=== PATIENT | female | born 1965 | race Caucasian/White ===

== ENCOUNTER → 2018-12-25 21:42 | Outpatient (CLI) | payer OTHER, SELFPAY ==
[2018-12-25 17:11] VITALS: BMI 31.9
[2018-12-25 21:53] LABS: Absolute Lymphocyte Count 4.31 X10^3/ul (0.83-4.51); Absolute Neutrophil Count 4.2 X10^3/uL (2.0-7.7); Basophil# 0.03 X10^3/uL; Basophil% 0.3 % (0-1); Eosinophil# 0.29 X10^3/uL; Eosinophils% 3.1 % (0-5); Hemoglobin 15.4 g/dl (12.0-15.0); Lymphocyte # 4.31 X10^3/ul (4.0); Lymphocyte % 45.8 % (19-41); Mean Corp Hgb Conc 33.5 g/gl (32-36); Mean Corpuscular Hgb 32.9 pg (27.0-32.0); Mean Corpuscular Volume 98.3 fL (81-99); Mean Platelet Vol. 10.1 fl (6.2-12.0); Monocyte# 0.54 X10^3/uL; Monocyte% 5.7 % (0-10); Neutrophil # 4.23 X10^3/uL (2.7-7.7); Platelet Count 247 K/mm3 (150-450); RBC Distribution Width CV 13.4 % (11.6-14.6); RBC Distribution Width SD 47.9 fl (35.1-43.9); Red Blood Count 4.68 M/mm3 (4.2-5.4); White Blood Count 9.4 K/mm3 (4.4-11.0)
[2018-12-25 21:57] LABS: POSITIVE COUNT NO; POSITIVE DIFFERENTIAL NO; POSITIVE MORPHOLOGY NO
[2018-12-25 22:07] LABS: AST(SGOT) 20 U/L (15-37); Alanine Aminotransfer ALT/SGPT 37 U/L (13-56); Albumin, Serum 3.9 g/dL (3.2-5.0); Alkaline Phosphatase 107 U/L (45-117); Anion Gap 7 (5-15); BUN 11 mg/dL (7-18); BUN/Creat Ratio 15.1 RATIO (10-20); Calcium,Total 9.3 mg/dL (8.5-10.1); Chloride 103 mmol/L (98-107); Cholesterol 210 mg/dL (200); Creatinine, Serum 0.73 mg/dL (0.55-1.02); EST Glomerular Filtration Rate 89 mL/min (>60); Est Glom Filt Rate - Afr Amer 108 mL/min (>60); Globulin 3.9 g/dL (2.2-4.2); Glucose 188 mg/dL (74-106); High Density Lipoprotein 35 mg/dL; Potassium 4.1 mmol/L (3.5-5.1); Protein, Total 7.8 g/dL (6.4-8.2); Sodium Level 139 mmol/L (136-145); Triglycerides 295 mg/dL; Very Low Density Lipoprotein 59 mg/dL (5-40)
== END ==
PROVIDERS: Referring Provider Nurse Practitioner; Visit Provider Nurse Practitioner
DX: I10 Essential (primary) hypertension (principal); E78.5 Hyperlipidemia, unspecified
CPT/HCPCS: 80053; 80061; 85025

== ENCOUNTER 2019-01-04 08:00 | Day surgery (SDC) | payer OTHER, SELFPAY ==
[2018-12-25 17:11] VITALS: BMI 31.9
--- NOTE | 2019-01-04 | COLBX_PTH ---
PATIENT: CAROL JOSHI LOC: EN U#:[id number] AGE/SX: 53/F ROOM: RE01/04/[address]: Dr. Keisha Headley MD : 1965 BED: DIS: 01/04/2019 SPEC #: [id number] RECD: 01/04/19 13:38 STATUS: DOMINICK JANNY #: [id number] JAKOB: 01/04/19 00:[address]: Keisha Headley DEPT: SURGICAL PATHOLOGY RECD BY: Robbie Haq ENTERED: 01/04/19 13:39 SP TYPE: COLON BX OTHR DR: Jazmyne Booker, [facility] Tissues: A - Sigmoid colon biopsy B - Rectum, NOS C - Rectum, NOS D - Rectum, NOS E - Rectum, NOS F - Rectum, NOS Procedures: Surgery Specimen Level IV HEADER OPERATION: Colonoscopy (MAC) PRE-OP DIAGNOSIS: Screening TISSUE SUBMITTED: A - Sigmoid polyp, B - Rectal polyps, C - Biopsy of rectal polyps #2, D - Distal rectal polyps #1, E - Distal rectal polyps #2, F - Biopsy of distal rectal polyps #3 MICROSCOPIC DIAGNOSIS A. Sigmoid polyp, biopsy: Hyperplastic polyp. B. Rectal polyps, biopsy: Fragments of hyperplastic polyp. C. Rectal polyps, biopsy: Fragments of hyperplastic polyp. D. Distal rectal polyp #1, biopsy: Fragments of hyperplastic polyp. E. Distal rectal polyp #2, biopsy: Fragments of hyperplastic polyp. F. Distal rectal polyp #3, biopsy: Fragments of hyperplastic polyp. AM:guero 01/05/19 MICROSCOPIC DESCRIPTION Slides are reviewed. GROSS DESCRIPTION A - Received in fixative is one container labeled with the patient's name and designated sigmoid polyp. The specimen consists of a carbone-pink polyp measuring 0.7 x 0.7 x 0.3 cm. The entire specimen is submitted in one cassette. Please note only one large polyp is identified. B - Received in fixative is one container labeled with the patient's name and designated rectal polyps. The specimen consists of multiple irregular fragments of carobne-pink polyp that in aggregate measure 1.5 x 0.7 x 0.3 cm. The specimen is totally submitted in one cassette. C - Received in fixative is one container labeled with the patient's name and designated biopsy of rectal polyps. The specimen consists of multiple irregular fragments of light carbone soft tissue that in aggregate measure 1 x 0.5 x 0.1 cm. The specimen is totally submitted in one cassette. D - Received in fixative is one container labeled with the patient's name and designated distal rectal polyp. The specimen consists of three variable sized pieces of carbone-pink polyp measuring 1.5 x 1 x 0.3 cm. The specimen is totally submitted in one cassette. E - Received in fixative is one container labeled with the patient's name and designated distal rectal polyp - 2. The specimen consists of a carbone-pink polyp measuring 1 x 1 x 0.5 cm. The apparent base is inked. Also present in the container is an additional small polyp measuring 0.3 x 0.3 x 0.2 cm. Also present in the container are multiple minute fragments of carbone soft issue that in aggregate measure 0.2 x 0.1 x 0.1 cm. The largest polyp is transected. The entire specimen is submitted in one cassette. F - Received in fixative is one container labeled with the patient's name and designated biopsy of distal rectal polyps #3. The specimen consists of multiple irregular fragments of light carbone soft tissue that in aggregate measure 2 x 0.5 x 0.1 cm. The specimen is totally submitted in one cassette. / SJ:guero 01/04/19 TC:5 [facility]: [id number] x6 ADDENDUM ADDENDUM 01/05/2019 14:35 ADDENDUM 01/05/2019 14:35 ADDENDUM 01/05/2019 14:35 ADDENDUM 01/05/2019 14:35 ADDENDUM 01/05/2019 14:35 This case was reviewed and diagnosis discussed with Dr. Headley on 01/05/19.
[2019-01-04 08:16] VITALS: BP 127/75; PULSE 71; RESP 16; TEMP 36.4; O2SAT 100; BMI 31.1
[2019-01-04 09:46] LABS: Bedside Glucose 194 mg/dL (70-110)
--- NOTE | 2019-01-04 10:19 | H&P.OPEN ---
History of Present Illness Date of Admission: 01/04/19 The patient is a 53 year old F presents for screening for colon cancer. Patient denies having a previous colonoscopy. Denies any family history of colon cancer. Denies any abdominal pain/nausea/vomiting. Patient states her reflux controlled with omeprazole 20 mg p.o. daily and she has been on for 5 or 6 years. Patient states she never had an EGD. Past Medical/Surgical History - Planned Operation Planned Operative Procedure/s: COLONOSCOPY Date of Operative Procedure: 01/04/19 Permit Signed: Yes S.O.S: No Is This Patient Having a Total Joint: No - Previous Hospitalizations/Surgeries HX Hospitalizations: No HX of Surgeries: NOSE JOB AGE 16. TUBAL. L TRIGGER THUMB. ABLATION. UPPER TEETH EXTRACTION Any Problems With Anesthesia: No You/Your Family Experience Fever (Hyperthermia) With Anes: No Cholinesterase deficiency: No - Cardiovascular Hx Chest Pain within Last 2 months: No Hx of Irregular Heartbeat and/or Afib: No Hx Heart Attack: No Hx Congestive Heart Failure: No Hx Rheumatic Fever: No Hx Hypertension: Yes - ON MED, CONTROLLED Hx Internal Defibrillator: No Hx Pacemaker: No Hx Cardiac Catheterization: No Hx Cardiac Surgery/Stents/Etc.: No Hx Stress Test: No HX Edema: No Hx Pain in Legs when Walking/Leg Cramps: No - Respiratory Chronic Cough: No HX of Shortness of Breath: No Hoarseness: No Hx Chronic Obstructive Pulmonary Disease (COPD): No Hx Asthma: No Hx Emphysema: No Hx Sleep Apnea: No Hx Oxygen Use at Home: No Hx Respiratory Tract Infection/Cold (presently): Yes - STUFFY NOSE, NO FEVER Do You Snore Loudly (louder than talking or can be heard): No Do You Often Feel Tired/ Fatigued/ Sleepy Dring Daytime?: No Has Anyone Observed You Stop Breathing During Sleep?: No Result (for STOP score): Negative Hx Smoking: Yes Smoking Status: Current every day smoker - Gastrointestinal Hx Gastroesophageal Reflux: Yes Controlled With Meds: Yes Hx Gastrointestinal Disorders: No Hx Gastrointestinal Bleed: No Hx Ulcer: No Hx Hiatal Hernia: No Difficulty Chewing/Swallowing: No Recent Onset of Swallowing Problems: No Special diet followed at home: No Hx Unplanned Weight Loss of 20#: No HX Unplanned Weight Gain of 20#: No - Neurological Hx Seizures: No HX Syncope/Blackout Spells/Unconsciousness: No Hx CVA/Stroke: No Hx Transient Ischemic Attacks (TIA): No Hx Multiple Sclerosis: No Hx Parkinson's Disease: No Hx Head/Neck Injury: No Hx Headaches: Yes - MIGRAINES RARELY Hx Back Injury/Pain: No Recent Onset of Speech Difficulty: No Restless Legs: No Does patient have nerve stimulator: No - Blood Disorder Hx Leukemia: No Bleeding Tendencies: No Hx Deep Vein Thrombosis: No Hx High Cholesterol: Yes - ON MED Blood Transmitted Disease: No Hx Hepatitis: No Hx Cirrhosis: No Hx Anemia: No Hx Blood Disorders: No - Reproduction : No Is Patient Lactating: No Hx Hysterectomy: No Hx Tubal Ligation: Yes Are You Post Menopause: No - Genitourinary Hx Renal Disease: No - Musculoskeletal Hx Arthritis: No Hx Rheumatoid Arthritis: No Hx Gout: No Recent Onset of an Orthopedic Problem: No - Endocrine Hx Diabetes: Yes Insulin: No Thyroid Disease: No Hx Steroid Therapy: No - Psycho/Social Hx Substance Use: No Hx Alcohol Use: Yes - SOCIALLY Hx Anxiety: No Hx Depression: No Mental Illness: No Hx Dementia: No - Miscellaneous Hx Cancer: No Recent Exposure to Contagious Disease: No Active MRSA: No Hx of C-Diff: No Any Loose Teeth: Yes - UPPER DENTURE-LOWER PARTIAL Additional information pertinent to anesthesia:: SMOKES 1PPD FOR 35 YRS Allergies linagliptin [From Tradjenta] Allergy (Severe, Verified 12/30/18 11:42) BLURRED VISION - Discharge Is Pt Admitted From a Assisted, or a Intermediate: No Who Could Help: -NANCI After D/C, Where Do you Plan to Go: Return Home - Physical Exam General: Alert HEENT: Atraumatic Lungs: Normal air movement Cardiovascular: Regular rate Abdomen: Soft, Non Tender - No peritoneal signs, Non-Distended Extremities: No clubbing, No cyanosis, No edema Vital Signs Temp Pulse Resp BP Pulse Ox 97.6 F L 71 16 127/75 H 100 01/04/19 08:16 01/04/19 08:16 01/04/19 08:16 01/04/19 08:16 01/04/19 08:16 Oxygen Delivery Method Room Air Weight: 187 lb 2.759 oz Body Mass Index (BMI) 31.1 POC Glucose 01/04/19 08:24 POC Glucose 194 H Assessment/Plan All Active Problems (Last Updated 12/25/18 @ 14:55 by Sharon Lyman) Encounter for screening mammogram for breast cancer (Acute) Hyperlipidemia LDL goal <130 (Acute) Diabetes mellitus type 2, uncontrolled, without complications (Acute) 53-year-old female for screening for colon cancer Surgery Risks - Colonoscopy I discussed with the patient the risks of the procedure: Yes Risks Include but are not Limited To: Risks include but are not limited to: Bleeding, perforation requiring further surgery, inability to complete colonoscopy requiring barium enema. Patient no further questions at this time
[2019-01-04 11:14] VITALS: BP 120/85; BP 127/75; PULSE 77; RESP 16; TEMP 36.6; O2SAT 97
--- NOTE | 2019-01-04 11:18 | OP.ENDO_ITS ---
Patient Name: Shasha Warren Procedure Date: 01/04/2019 10:10 AM Date of : 1965 Age: 53 Procedure: Colonoscopy Indications: Screening for colorectal malignant neoplasm Providers: Keihsa Headley MD Medicines: Monitored Anesthesia Care Patient Profile: This is a 53 year old female. Last Colonoscopy: none. The patient's first colonoscopy is today. Complications: No immediate complications. Procedure: Pre-Anesthesia Assessment: - Prior to the procedure, a History and Physical was performed, and patient medications and allergies were reviewed. The patient's tolerance of previous anesthesia was also reviewed. The risks and benefits of the procedure and the sedation options and risks were discussed with the patient. All questions were answered, and informed consent was obtained. Prior Anticoagulants: The patient has taken no previous anticoagulant or antiplatelet agents. ASA Grade Assessment: II - A patient with mild systemic disease. After reviewing the risks and benefits, the patient was deemed in satisfactory condition to undergo the procedure. After I obtained informed consent, the scope was passed under direct vision. Throughout the procedure, the patient's blood pressure, pulse, and oxygen saturations were monitored continuously. The pediatric colonoscope was introduced through the anus and advanced to the cecum, identified by the appendiceal orifice, ileocecal valve and palpation. The colonoscopy was performed without difficulty. The patient tolerated the procedure well. The quality of the bowel preparation was good. Scope In: 10:24:02 AM Scope Withdrawal Time 0 hours 34 minutes 50 seconds Scope Out: 11:09:00 AM Total Procedure Duration Time 0 hours 44 minutes 58 seconds Findings: Eight pedunculated polyps were found in the rectum and sigmoid colon. The polyps were 5 to 10 mm in size. These polyps were removed with a hot snare. Resection and retrieval were complete. Eight sessile polyps were found in the rectum. The polyps were less than 5 mm in size. These polyps were removed with a cold biopsy forceps. Resection and retrieval were complete. The retroflexed view of the distal rectum and anal verge was normal and showed no anal or rectal abnormalities. Multiple small and large-mouthed diverticula were found in the sigmoid colon and descending colon. Impression: - Eight 5 to 10 mm polyps (adenomatous) in the rectum and in the sigmoid colon, removed with a hot snare. Resected and retrieved. - Eight less than 5 mm polyps in the rectum, removed with a cold biopsy forceps. Resected and retrieved. - The distal rectum and anal verge are normal on retroflexion view. - Diverticulosis in the sigmoid colon and in the descending colon. Recommendation: - Discharge patient to home. - High fiber diet. - Continue present medications. - Await pathology results. - Repeat colonoscopy in 1 year for surveillance based on pathology results. Procedure Code(s): --- Professional --- 18888, Colonoscopy, flexible; with removal of tumor(s), polyp(s), or other lesion(s) by snare technique [id number], 59, Colonoscopy, flexible; with biopsy, single or multiple Diagnosis Code(s): --- Professional --- Z12.11, Encounter for screening for malignant neoplasm of colon D12.8, Benign neoplasm of rectum D12.5, Benign neoplasm of sigmoid colon K62.1, Rectal polyp K57.30, Diverticulosis of large intestine without perforation or abscess without bleeding CPT copyright 2017 [employer]. All rights reserved. The codes documented in this report are preliminary and upon unmanned equipment operator review may be revised to meet current compliance requirements. MD Keisha Abbasi MD 01/04/2019 11:18:15 AM This report has been signed electronically. Number of Addenda: 0 Note Initiated On: 01/04/2019 10:10 AM
[2019-01-04 11:19] VITALS: BP 127/75; BP 136/83; PULSE 66; RESP 16; O2SAT 98
[2019-01-04 11:24] VITALS: BP 127/75; BP 129/79; PULSE 69; RESP 16; O2SAT 100
[2019-01-04 11:30] VITALS: BP 127/75; BP 149/89; PULSE 73; RESP 16; TEMP 36.4; O2SAT 100
[2019-01-04 11:39] VITALS: BP 127/75
== END 2019-01-04 12:03 | disposition home or self-care (01) ==
LOC: EN 08:00 → AC 08:02
PROVIDERS: Family Provider Nurse Practitioner; PCP Nurse Practitioner; Referring Provider Surgery; Visit Provider Surgery
PROC: 0DJD8ZZ Inspection of Lower Intestinal Tract, Via Natural or Artificial Opening Endoscopic (ICD-10-PCS; CPT 45378; principal; 2019-01-04 09:10)
DX: Z12.11 Encounter for screening for malignant neoplasm of colon (principal); D12.5 Benign neoplasm of sigmoid colon; D12.8 Benign neoplasm of rectum; K57.30 Diverticulosis of large intestine without perforation or abscess without bleeding; K21.9 Gastro-esophageal reflux disease without esophagitis; I10 Essential (primary) hypertension; E11.9 Type 2 diabetes mellitus without complications; E78.5 Hyperlipidemia, unspecified; F17.200 Nicotine dependence, unspecified, uncomplicated; Z79.84 Long term (current) use of oral hypoglycemic drugs; Z79.899 Other long term (current) drug therapy
CPT/HCPCS: 45380; 45385; 82962; 88305; J7120

== ENCOUNTER → 2022-12-20 | Outpatient (CLI) | payer BC, SELFPAY ==
[2022-12-20 21:31] LABS: Absolute Lymphocyte Count 2.82 X10^3/uL (0.83-4.51); Absolute Neutrophil Count 2.4 X10^3/uL (2.0-7.7); Basophil# 0.08 X10^3/uL; Basophil% 1.3 % (0-1); Eosinophil# 0.43 X10^3/uL; Eosinophils% 6.8 % (0-5); Hematocrit 41.1 % (37-47); Hemoglobin 13.7 g/dL (12.0-15.0); Lymphocyte # 2.82 X10^3/ul (0.83-4.51); Lymphocyte % 44.4 % (19-41); Mean Corp Hgb Conc 33.3 g/dL (32-36); Mean Corpuscular Hgb 31.4 pg (27.0-32.0); Mean Corpuscular Volume 94.1 fL (81-99); Mean Platelet Vol. 10.1 fl (6.2-12.0); Monocyte# 0.56 X10^3/uL; Monocyte% 8.8 % (0-10); NRBC Flagged by Analyzer 0 % (0-5); Neutrophil # 2.44 X10^3/uL (2.7-7.7); Neutrophil % 38.4 % (47-70); Platelet Count 266 K/mm3 (150-450); RBC Distribution Width CV 13.2 % (11.6-14.6); RBC Distribution Width SD 45.2 fl (35.1-43.9); Red Blood Count 4.37 M/mm3 (4.2-5.4); White Blood Count 6.4 K/mm3 (4.4-11.0)
[2022-12-20 21:54] LABS: ALB/GLOB Ratio 0.9 RATIO (0.9-2.4); AST(SGOT) 14 U/L (15-37); Alanine Aminotransfer ALT/SGPT 28 U/L (13-56); Albumin, Serum 3.6 g/dL (3.2-5.0); Alkaline Phosphatase 112 U/L (45-117); Anion Gap 4 (5-15); BUN 21 mg/dL (7-18); BUN/Creat Ratio 25.4 RATIO (10-20); Calcium,Total 9.2 mg/dL (8.5-10.1); Chloride 105 mmol/L (98-107); Cholesterol 170 mg/dL (200); Creatinine, Serum 0.83 mg/dL (0.55-1.02); EST Glomerular Filtration Rate 76 mL/min (>60); Est Glom Filt Rate - Afr Amer 91 mL/min (>60); Globulin 3.9 g/dL (2.2-4.2); Glucose 213 mg/dL (74-106); High Density Lipoprotein 58 mg/dL; Potassium 4.2 mmol/L (3.5-5.1); Protein, Total 7.5 g/dL (6.4-8.2); Sodium Level 138 mmol/L (136-145); Triglycerides 112 mg/dL; Very Low Density Lipoprotein 22 mg/dL (5-40)
== END | disposition home or self-care (01) ==
PROVIDERS: PCP Nurse Practitioner; Visit Provider Nurse Practitioner
DX: Z00.00 Encounter for general adult medical examination without abnormal findings (principal)
CPT/HCPCS: 80053; 80061; 85025

== ENCOUNTER → 2023-12-12 | Outpatient (CLI) | payer BC, SELFPAY ==
--- OUTSIDE RECORDS SUMMARY | 2023-12-12 19:41 | XMS RPT_ITS | CCD ---
Author Name Unknown Address [address] [place] [address] Organization [facility] Care Team Providers Care Bottoming Machine Operator Name Role Phone CISCO BOOKER Referring Unavailable CISCO BOOKER Primary Care Unavailable BETTY BOBBY Referring Unavailable BETTY BOBBY Attending Unavailable DONTA ARORA Attending Unavailable CISCO BOOKER Primary Care Unavailable CISCO BOOKER Primary Care Unavailable Cisco Booker Primary Care Provider [phone] Allergies Allergy Classification Reported Allergen(s) Allergy Type Date of Onset Reaction(s) Facility (7 sources) cefdinir Drug Allergy 06-29-2015 [facility] (7 sources) Linagliptin Drug Allergy 12-30-2018 [facility] Medications Current Medications Medication Drug Class(es) Dates Sig (Normalized) Sig (Original) docosahexaenoic acid 120 mg / eicosapentaenoic acid 180 mg oral capsule (6 sources) omega-3 (Fish Oi l) 1000 MG capsule Take by mouth. 0 Active ezetimibe 10 mg oral tablet (6 sources) Dietary Cholesterol Absorption Inhibitor take 1 tablet by mouth in the morning ezetimibe (Zetia) 10 MG tablet Take 10 mg by mouth in the morning. 0 Active glimepiride 4 mg oral tablet (6 sources) Sulfonylurea glimepiride (Amaryl) 4 MG tablet Take 4 mg by mouth. 0 Active lisinopril 10 mg oral tablet (6 sources) Angiotensin Converting Enzyme Inhibitor take 1 tablet by mouth in the morning lisinopril 10 MG tablet Take 10 mg by mouth in the morning. 0 Active 24 hr lovastatin 40 mg extended release oral tablet (6 sources) HMG-CoA Reductase Inhibitor take 1 tablet by mouth once daily lovastatin (Altoprev) 40 MG 24 hr tablet Take 40 mg by mouth Nightly. 0 Active modified 24 hr metFORMIN hydrochloride 1000 mg extended release oral tablet (6 sources) Biguanide take 1 tablet by mouth once daily at breakfast, then take 1 tablet by mouth every twenty-four hours metFORMIN, MOD, (Glumetza) 1000 MG 24 hr tablet Take 1,000 mg by mouth daily (with breakfast). 0 Active niacin 500 mg oral tablet (6 sources) Nicotinic Acid niacin 500 MG tablet Take 500 mg by mouth. 0 Active omeprazole 20 mg delayed release oral capsule (6 sources) Proton Pump Inhibitor take 1 capsule by mouth in the morning omeprazole (PriLOSEC) [address] capsule Take 20 mg by mouth in the morning. 0 Active Completed/Discontinued Medications Medication Drug Class(es) Dates Sig (Normalized) Sig (Original) 10 ml lidocaine hydrochloride 10 mg/ml injection (2 sources) Antiarrhythmic, Amide Local Anesthetic Start: 07-09-2023 End: 07-09-2023 lidocaine (Xylocaine) 1 % injection 4 mL 1 ml triamcinolone acetonide 40 mg/ml injection (2 sources) Corticosteroid Start: 07-09-2023 End: 07-09-2023 triamcinolone acetonide (Kenalog-40) injection 80 mg Problems Problem Classification Problem Date Documented Da te Episodic/Chronic Sprains and strains (14 sources) Strain of muscle of upper limb; Translations: [Strain of muscle, fascia and tendon of other parts of biceps, right arm, initial encounter] Onset: 05-14-2023 05-14-2023 Episodic Results Test Name Value Interpretation Reference Range Facil ity Vital Signs Date Time Vital Sign Value Performing Clinician Faci lity 07-09-2023 10:20-0400 Body height 165.1 cm Donta Arora MD Work Phone: [employer] 07-09-2023 10:20-0400 Body mass index (BMI) [Ratio] 33.28 kg/m2 Donta Arora MD Work Phone: [employer] 07-09-2023 10:20-0400 Body weight 90.72 kg Donta Arora MD Work Phone: [employer] 07-09-2023 10:20-0400 Diastolic blood pressure 83 mm[Hg] Donta Arora MD Work Phone: [employer] 07-09-2023 10:20-0400 Systolic blood pressure 141 mm[Hg] Donta Arora MD Work Phone: [facility] [employer] 05-23-2023 09:35-0400 Body height 165.1 cm Donta Arora MD Work Phone: [facility] [employer] 05-23-2023 09:35-0400 Body mass index (BMI) [Ratio] 33.28 kg/m2 Donta Arora MD Work Phone: [facility] [employer] 05-23-2023 09:35-0400 Body weight 90.72 kg Donta Arora MD Work Phone: [facility] [employer] 05-23-2023 09:35-0400 Diastolic blood pressure 82 mm[Hg] Donta Arora MD Work Phone: [facility] [employer] 05-23-2023 09:35-0400 Systolic blood pressure 110 mm[Hg] Donta Arora MD Work Phone: [facility] Encounters Encounter Date Encounter Type Care Provider Facility Start: 07-09-2023 End: 07-09-2023 ambulatory [facility] Start: 07-09-2023 End: 07-09-2023 Office outpatient visit 15 minutes Donta Arora MD Work Phone: [facility] Procedures Date Procedure Procedure Detail Performing Clinician Start: 01-04-2019 Colonoscopy Betty garcia [employer] SUPERVISOR - [employer] Work Phone: Plan of Treatment Date Care Activity Detail Author Start: 01-04-2029 Screening for malign ant neoplasm of colon [facility] Start: 07-25-2023 Influenza vaccination S [facility] Start: 2015 Zoster Vaccines (1 of 2) Zoster Vacc kellie (1 of 2) [facility] Start: 2005 Screening for malign ant neoplasm of breast Mammogram [facility] Start: 1995 Screening for malign ant neoplasm of cervix [facility] Start: 1986 Screening for malign ant neoplasm of cervix Pap Smear [facility] Start: 1984 DTaP/Tdap/Td Vaccine s (1 - Tdap) DTaP/Tdap/Td Vaccines ( - Tdap) [facility] Start: 1983 Hepatitis C screening Hepatitis C Ma sushil [facility] Start: 1977 Depression Screening Depression Scre katie [facility] Start: 1975 Diabetic foot examination Diabetes: Foot Exam [facility] Start: 1975 Glaucoma screening Diabetes: R etinopathy Screening [facility] Start: 1975 Preventive dental service Diabetes: Dental Exam [facility] Start: 1966 MMR Vaccines (1 of 1 - Standard series) MMR Vaccines (1 of 1 - Standard series) [facility] Start: 1965 Hemoglobin A1c measurement Diabetes: Hemoglobin A1C [facility] Start: 1965 Hepatitis B Vaccines (1 of 3 - 3-dose series) Hepatitis B Vaccines (1 of 3 - 3-dose series) [facility] Start: 1965 HIV screening HIV Screening [facility] Start: 1965 Lipid panel Lipid Panel [facility] Start: 1965 Screening for malign ant neoplasm of colon [facility] End: 05-14-2023 MR Shoulder - right WO contrast [facility] Work Phone: Immunizations Immunization Date Immunization Notes Care Provider [facility] 09-01-2014 influenza virus vacc ine, unspecified formulation Betty Bobby [employer] SUPERVISOR - [employer] Work Phone: [facility] Payers Date Payer Category Payer Unknown [id number] 2023 Worker's Compensation [employer] [id number] 2023-Present [address] [place] [address] Worker's Comp [id number] Social History Date Type Detail Facility [facility] consumption unknown [facility] Start: 1965 Sex Assigned At Not on file [facility] Start: 05-23-2023 End: 07-09-2023 Gender identity Not on file [facility] Start: 05-04-2023 End: 05-14-2023 Exposure to SARS-CoV-2 (event) Not sure [facility] Start: 05-23-2023 [facility] History of tobacco use Current smoker [facility] History of tobacco use Cigarette Smoker S [facility] Start: 05-23-2023 Tobacco use and exposure Smokeless t obacco non-user [facility] Start: 05-23-2023 End: 07-09-2023 History of Social function [facility] Clinical Notes 05-23-2023 to 07-09-2023 Donta Arora MD - 07/09/2023 10:00 AM EDTTelephone Encounter - Lupis Ledesma - 05/30/2023 4:15 PM EDTTelephone Encounter - Lupis Ledesma - 05/30/2023 4:15 PM EDTPatient Instructions Note Date & Type Note Facility 07-09-2023 History of Presen t illness Narrative Images from the original note were not included. [facility] [address] [facility] [address] Dept: [phone] Dept Chief Complaint Patient presents with Follow-up [facility] Right Shoulder Diagnostic Injection Subjective History of Present Illness: Carol Joshi follows up today for Right Shoulder Injection. [facility]# [id number], DOI: 03/13/2023 Since the last visit on 05/23/2023, symptoms are unchanged. Current symptoms are pressure, tight/stiff, sharp, shooting, and cramping . She rates symptoms as a 0/10 at rest and a 8/10 at worst. Imaging to date: MRI April 2023 Treatment to date: PT/OT/HEP: yes, formal physical therapy for 1 month. Helpful Ice: no Heat: no Medications: Tylenol: yes, helpful NSAIDs: yes, Ibuprofen/Motrin/Advil, helpful Oral steroids: no Muscle relaxants: no Nerve medications: no Targeted injections: none Assistive devices: none Fall risk assessment: Less than 65, not applicable Objective There were no vitals taken for this visit. Physical Exam: General: Alert, well appearing, no acute distress. Respiratory: Breathing comfortably on room air. No respiratory distress. Skin: Warm, dry, intact. No visible rashes or erythema overlying area of focused exam. Physical Exam Musculoskeletal: Comments: Musculoskeletal/Neurologic: Right Shoulder. Contralateral side is normal unless otherwise noted. Inspection: Posture: Normal. Ecchymosis: No ecchymosis noted of the examined area. Palpation: Diffuse tenderness superior lateral shoulder Range of Motion: Cervical Spine: Full, pain free. Right Shoulder: Flexion: 170. Abduction: 170. ER at AB: 30. IR at AB: 50. Strength: Supraspinatous - Empty Can/Jobst: Pain with no weakness. Infraspinatus - Resisted lateral rotation: Normal. Subscapularis - Resisted interal rotation: Pain with no weakness. Biceps - Speed's Test: Normal strength with mild discomfort. Sensation: Sensation to light touch intact, symmetric of the examined bilateral upper extremities. Special Tests: Neer's: Normal. Us-Jareth: Normal. Cross Body Adduction: Normal. [place]'s Test: Normal. Spurling's: Normal. External Notes None available, unable to view [facility] notes Labs No results found for: HGBA1C No results found for: CREATININE Imaging Images reviewed with patient today I have personally reviewed the images pertinent to the appointment today EMG/NCT N/A Procedure Procedure completed today, details below Based on today's examination and a subacromial injection will give her the most relief. Her bicipital tendon tenderness was insignificant. Her limited external rotation and mild rotator cuff symptomatology was the primary focus. Procedure Note: Prior to the procedure, the patient's allergies were reviewed. The procedure site was marked. The risks, benefits, alternatives, and anticipated outcomes of the procedure were discussed. Informed consent included possibility of bleeding, infection, increased pain, hyperglycemia, steroid flare, hypopigmentation and fat atrophy. Injection site - Right subacromial bursa. Injectate - 2 ml Kenalog (40mg/ml) with 4 ml of 1% lidocaine. The injection site was prepped in the usual sterile manner using betadine and rubbing alcohol. Ethyl chloride mist spray was used to numb the skin. Needle advanced to target without difficulty. After the injection, a bandage was placed over the injection site. The patient tolerated the procedure well with no adverse effects. Post-injection instructions were reviewed with the patient and the patient voiced understanding. Post procedure the shoulder pain was reduced. Assessment No diagnosis found. Plan [facility] Plan Current work status: No change based on my treatment plan today . C9 request: Agree with physical therapy recommendations of extending their visits. No follow-ups on file. Maisha Schwartz MA 07/09/2023 8:30 AM Please note that portions of this note may have been completed with voice recognition software. Documentation reviewed prior to signing but minor errors in canvassing manager may have occurred. documented in this encounter [facility] 05-30-2023 Telephone encount er Note Called pt to let her know ok to sched PT. She will call to schedule [facility] 05-30-2023 Miscellaneous Notes Formattin g of this note might be different from the original. Called pt to let her know ok to sched PT. She will call to schedule Let her know ok to schedule , ty Received approved C9 for phys therapy. Ok to schedule. Copy of approved C9 is scanned to pt media chart Ok ty Faxed C9 for physical therapy. documented in this encounter [facility] 05-30-2023 Telephone encount er Note Let her know ok to schedule , ty [facility] 05-30-2023 Telephone encount er Note Received approved C9 for phys therapy. Ok to schedule. Copy of approved C9 is scanned to pt media chart [facility] 05-29-2023 Telephone encount er Note Ok ty [facility] 05-29-2023 Miscellaneous Notes Formattin g of this note might be different from the original. Ok ty Faxed C9 for physical therapy. documented in this encounter [facility] 05-29-2023 Telephone encount er Note Faxed C9 for physical therapy. [facility] 05-23-2023 Telephone encount er Note TY! [facility] 05-23-2023 Miscellaneous Notes Formattin g of this note might be different from the original. TY! Faxed C9 for phys therapy to [place] today documented in this encounter [facility] 05-23-2023 Telephone encount er Note Faxed C9 for phys therapy to [place] today [facility] 05-23-2023 History of Presen t illness Narrative Images from the original note were not included. [facility] [address] [place] [address] Dept: [phone] Dept Chief Complaint Patient presents with New Patient Right shoulder pain -[facility] Subjective History of Present Illness: Carol Joshi is a 58 y.o. right hand dominant female who presents today for evaluation of right shoulder pain. Location: generalized and around the bicep Onset: 2 months Injury: yes - lifting at work . Work related? 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 Respiratory: Breathing comfortably on room air. No respiratory distress. Skin: Warm, dry, intact. No visible rashes or erythema overlying area of focused exam. Physical Exam Musculoskeletal: Comments: Musculoskeletal/Neurologic: Right Shoulder. Contralateral side is normal unless otherwise noted. Inspection: Posture: Normal. Ecchymosis: No ecchymosis noted of the examined area. Palpation: Diffuse tenderness superior lateral shoulder Range of Motion: Cervical Spine: Full, pain free. Right Shoulder: Flexion: 170. Abduction: 170. ER at AB: 70. IR at AB: 50. Strength: Supraspinatous - Empty Can/Jobst: Pain with mild weakness. Infraspinatus - Resisted lateral rotation: Normal. Subscapularis - Resisted interal rotation: Pain with mild weakness. Biceps - Speed's Test: Normal. Sensation: Sensation to light touch intact, symmetric of the examined bilateral upper extremities. Special Tests: Neer's: Normal. Us-Jareth: Normal. Cross Body Adduction: Normal. Ak[place]'s Test: Normal. Spurling's: Normal. External Notes MRI reviewed Labs No results found for: HGBA1C No results found for: CREATININE Imaging Images reviewed with patient today I have personally reviewed the images pertinent to the appointment today Findings: Multiplanar multisequence high field strength MRI images were obtained through the right shoulder without intravenous gadolinium. No fracture or subluxation. Acromioclavicular joint demonstrates mild osteoarthropathy with degenerative sclerosis and small distal clavicle osteophyte inferiorly. Tiny developing subchondral cyst distal clavicle. Type III acromion with anterior hook causes [id number] impingement. Mild subacromial subdeltoid bursitis with some bursal sided supraspinatus tendon fraying. Long head biceps tendon is torn and retracted. A few thin fibers are seen along the proximal bicipital groove. Subscapularis demonstrates mild tendinitis. There is tiny partial-thickness interstitial tear superiorly series 7 images 11 through 13. Minimal supraspinatus tendinitis, no tear. Infraspinatus and teres minor are normal. No significant atrophy. Small shoulder joint effusion with mild synovitis. Glenohumeral articular cartilage demonstrates mild articular cartilage thinning but no focal or full thickness defect. Glenoid labrum demonstrates age-indeterminate tear of the superior labrum. 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 Tiny glenohumeral osteophytes with minimal degenerative glenoid sclerosis. Capsule demonstrates mild inflammation along the anterior interval and inferiorly which can be seen with adhesive capsulitis or a mild capsular sprain. IMPRESSION: Impression: 1. Torn and retracted proximal long head biceps tendon. No definite residual intact fibers are seen. 2. Tiny partial interstitial tear of the distal superior subscapularis superimposed on subscapularis and supraspinatus tendinitis. No sizable or full-thickness tear. 3. Mild inflammation within the anterior rotator cuff interval and inferiorly which can be seen with a mild capsular sprain or disease of capsulitis. No tear. 4. Small shoulder joint effusion with mild synovitis. 5. Mild acromioclavicular and glenohumeral osteoarthropathy. There is [id number] acromial impingement with mild subacromial subdeltoid bursitis. EMG/NCT N/A Procedure No procedures completed today Assessment Diagnosis Plan 1. Traumatic partial tear of right biceps tendon, initial encounter Ambulatory referral to Physical Therapy 2. Sprain of right shoulder, initial encounter Ambulatory referral to Physical Therapy Plan Strongly recommend we start a C9 for initiation of formal physical therapy. Strain supraspinatus muscle right shoulder and strain subscapularis muscle right shoulder should be additional added diagnoses as this is confirmed by her examination and MRI. No follow-ups on file. Donta Arora MD 05/23/2023 9:29 AM Please note that portions of this note may have been completed with voice recognition software. Documentation reviewed prior to signing but minor errors in canvassing manager may have occurred. documented in this encounter [facility] 05-23-2023 Instructions Donta Arora MD - 05/23/2023 9:45 AM EDT Images from the original note were not included. Rotator Cuff: Strengthening Exercises, Arm raise x 4 Directions 1) Sideways, 0 forwards 2) 30 forward, thumb down 3) 30 forward, thumb up 4) Straight forward, 90 Slowly raise your injured arm each direction. Raise your arm 60 - 80 at the most (shoulder level is 90 ) definitely not over the shoulder height. Hold the position for 3-5 seconds. Then lower your arm back to your side. If you need to, bring your good arm across your body and place it under the elbow as you lower your injured arm. Use your good arm to keep your injured arm from dropping down too fast. Repeat 8 to 15 times. When you first start out, don't hold any extra weight in your hand. As you get stronger, you may use a 1-pound to 3-pound dumbbell or a small can of food. Internal rotator strengthening exercise Start by tying a piece of elastic exercise material to a doorknob. You can use surgical tubing or Thera-Band. Stand or sit with your shoulder relaxed and your elbow bent 90 . Your upper arm should rest comfortably against your side. Squeeze a rolled towel between your elbow and your body for comfort. This will help keep your arm at your side. Hold one end of the elastic band in the hand of the painful arm. Slowly rotate your forearm toward your body until it touches your belly. Slowly move it back to where you started. Keep your elbow and upper arm firmly tucked against the towel roll or at your side. Repeat 8 to 15 times. External rotator strengthening exercise Start by tying a piece of elastic exercise material to a doorknob. You can use surgical tubing or Thera-Band. (You may also hold one end of the band in each hand.) Stand or sit with your shoulder relaxed and your elbow bent 90 . Your upper arm should rest comfortably against your side. Squeeze a rolled towel between your elbow and your body. This will help keep your arm at your side. Hold one end of the elastic band with the hand of the painful arm. Start with your forearm across your belly. Slowly rotate the forearm out away from your body. Slowly move your arm back to where you started. Repeat 8 to 15 times. Progression Start on the progression listed below where you feel comfortable. When the last three reps are perfect form, then increase one step. When you add a set, don't add to the total reps. Repetitions Sets 4 2 6 2 8 2 10 2 12 2 15 2 10 3 12 3 15 3 documented in this encounter [facility] Diagnosis Traumatic partial tear of right biceps tendon, initial encounter- Primary Sprain of right shoulder, initial encounter documented in this encounter [facility]* Diagnosis Sprain of right shoulder, initial encounter Traumatic partial tear of right biceps tendon, initial encounter documented in this encounter [facility]* Diagnosis Strain of muscle, fascia and tendon of other parts of biceps, right arm, initial encounter- Primary Unspecified sprain of right shoulder joint, initial encounter Strain of muscle, fascia and tendon of other parts of biceps, right arm, initial encounter Unspecified sprain of right shoulder joint, initial encounter [facility] Consultation (Routine) - Pending Review Specialty Diagnoses / Procedures Referred By Miranda hurst Referred To Contact Physical Therapy Diagnoses Traumatic partial tear of right biceps tendon, initial encounter Sprain of right shoulder, initial encounter Procedures [place] OFFICE/OUTPATIENT [facility] 60-74 MINUTES Donta Arora MD [address] [place] [id number] Referral ID Status Reason Start Date Expiration Date Visits Requested Visits Authorized [id number] Pending Review Specialty Services Required 05/23/2023 05/22/2024 99 [phone] [facility] Summary Purpose Family History No Family History Records FoundNo Family History Records Found Advance Directives No Advanced Directives Records FoundNo Advanced Directives Records Found Reason for Referral Specialty Diagnoses / Procedures Referred By Miranda hurst Referred To Contact Radiology Diagnoses Strain of muscle, fascia and tendon of other parts of biceps, right arm, initial encounter Unspecified sprain of right shoulder joint, initial encounter Procedures MR shoulder right wo IV contrast Betty Bobby, [employer] - [facility] [facility] [address] [place] [address] Referral ID Status Reason Start Date Expiration Date Visits Re quested Visits Authorized [id number] Closed 05/14/2023 11/10/2023 1 1 Additional Source Comments INFORMATION SOURCE (unrecogn ized section and content) DATE CREATED AUTHOR AUTHOR'S ORGANIZ ATION 07/10/2023 [employer] [facility] Reason for Visit (unrecogniz ed section and content) Referral ID Status Reason Start Date Expiration Date Visits Re quested Visits Authorized [id number] Closed 05/14/2023 11/10/2023 1 1 Reason Comments New Patient Right shoulder pain -[facility] Reason Comments Follow-up [facility] Right Shoulder D iagnostic Injection Care Teams (unrecognized sec tion and content) Bottoming Machine Operator Relationship Specialty Start Date End Date Cisco Booker [address] [facility] [place] [address] PCP - General Nurse Practitioner 05/14/23 Bottoming Machine Operator Relationship Specialty Start Date End Date Cisco Booker [address] [facility] [place] [address] PCP - General Nurse Practitioner 05/14/23 Bottoming Machine Operator Relationship Specialty Start Date End Date Cisco Booker [address] [place] [address] PCP - General Nurse Practitioner 05/14/23 Bottoming Machine Operator Relationship Specialty Start Date End Date Cisco Booker [address] [place] [address] PCP - General Nurse Practitioner 05/14/23 FOR RECORDS PERTAINING TO PATIENTS WHO ARE OR HAVE BEEN ENROLLED IN A CHEMICAL DEPENDENCY/SUBSTANCEABUSE PROGRAM, SOME INFORMATION MAY BE OMITTED. This clinical summary was aggregated from multiple sources. Caution should be exercised in using it in the provision of clinical care. This summary normalizes information from multiple sources, and as a consequence, information in this document may materially change the coding, format and clinical context of patient data. In addition, data may be omitted in some cases. CLINICAL DECISIONS SHOULD BE BASED ON THE PRIMARY CLINICAL RECORDS. [facility] [employer] provides no warranty or guarantee of the accuracy or completeness of information in this document.
[2023-12-12 19:46] LABS: Absolute Lymphocyte Count 3.13 X10^3/uL (0.83-4.51); Absolute Neutrophil Count 2.1 X10^3/uL (2.0-7.7); Basophil# 0.07 X10^3/uL; Basophil% 1.1 % (0-1); Eosinophil# 0.32 X10^3/uL; Eosinophils% 5.2 % (0-5); Hematocrit 41.1 % (37-47); Hemoglobin 13.3 g/dL (12.0-15.0); Lymphocyte # 3.13 X10^3/ul (0.83-4.51); Lymphocyte % 50.6 % (19-41); Mean Corp Hgb Conc 32.4 g/dL (32-36); Mean Corpuscular Hgb 31.4 pg (27.0-32.0); Mean Corpuscular Volume 97.2 fL (81-99); Mean Platelet Vol. 10.1 fl (6.2-12.0); Monocyte% 8.1 % (0-10); NRBC Flagged by Analyzer 0 % (0-5); Neutrophil # 2.14 X10^3/uL (2.7-7.7); Neutrophil % 34.7 % (47-70); Platelet Count 309 K/mm3 (150-450); RBC Distribution Width CV 13.2 % (11.6-14.6); Red Blood Count 4.23 M/mm3 (4.2-5.4); White Blood Count 6.2 K/mm3 (4.4-11.0)
[2023-12-12 20:02] LABS: ALB/GLOB Ratio 0.9 RATIO (0.9-2.4); AST(SGOT) 17 U/L (15-37); Alanine Aminotransfer ALT/SGPT 27 U/L (13-56); Albumin, Serum 3.5 g/dL (3.2-5.0); Alkaline Phosphatase 76 U/L (45-117); Anion Gap 4 (5-15); BUN 15 mg/dL (7-18); BUN/Creat Ratio 22.1 RATIO (10-20); Calcium,Total 9.2 mg/dL (8.5-10.1); Chloride 107 mmol/L (98-107); Cholesterol 186 mg/dL (200); Creatinine, Serum 0.68 mg/dL (0.55-1.02); EST Glomerular Filtration Rate 95 mL/min (>60); Est Glom Filt Rate - Afr Amer 114 mL/min (>60); Globulin 3.7 g/dL (2.2-4.2); Glucose 137 mg/dL (74-106); High Density Lipoprotein 55 mg/dL; Potassium 4.3 mmol/L (3.5-5.1); Protein, Total 7.2 g/dL (6.4-8.2); Sodium Level 139 mmol/L (136-145); Triglycerides 118 mg/dL; Very Low Density Lipoprotein 24 mg/dL (5-40)
== END | disposition home or self-care (01) ==
PROVIDERS: PCP Nurse Practitioner; Referring Provider Nurse Practitioner; Visit Provider Nurse Practitioner
DX: Z00.00 Encounter for general adult medical examination without abnormal findings (principal)
CPT/HCPCS: 80053; 80061; 85025

== ENCOUNTER → 2024-12-08 | Outpatient (CLI) | payer BC, SELFPAY ==
[2024-12-08 22:06] LABS: Absolute Lymphocyte Count 2.96 X10^3/uL (0.83-4.51); Absolute Neutrophil Count 3.6 X10^3/uL (2.0-7.7); Basophil# 0.05 X10^3/uL; Basophil% 0.7 % (0-1); Eosinophil# 0.17 X10^3/uL; Eosinophils% 2.3 % (0-5); Hematocrit 40.3 % (37-47); Hemoglobin 13.5 g/dL (12.0-15.0); Lymphocyte # 2.96 X10^3/ul (0.83-4.51); Mean Corp Hgb Conc 33.5 g/dL (32-36); Mean Corpuscular Hgb 30.7 pg (27.0-32.0); Mean Corpuscular Volume 91.6 fL (81-99); Monocyte# 0.62 X10^3/uL; Monocyte% 8.4 % (0-10); NRBC Flagged by Analyzer 0 % (0-5); Neutrophil # 3.59 X10^3/uL (2.7-7.7); Neutrophil % 48.5 % (47-70); Platelet Count 269 K/mm3 (150-450); RBC Distribution Width CV 12.7 % (11.6-14.6); RBC Distribution Width SD 42.1 fl (35.1-43.9); White Blood Count 7.4 K/mm3 (4.4-11.0)
[2024-12-08 22:29] LABS: AST(SGOT) 11 U/L (15-37); Alanine Aminotransfer ALT/SGPT 24 U/L (13-56); Albumin, Serum 3.8 g/dL (3.2-5.0); Alkaline Phosphatase 89 U/L (45-117); Anion Gap 6 (5-15); BUN 12 mg/dL (7-18); BUN/Creat Ratio 17.2 RATIO (10-20); Calcium,Total 9.6 mg/dL (8.5-10.1); Chloride 103 mmol/L (98-107); Cholesterol 169 mg/dL (200); EST Glomerular Filtration Rate 92 mL/min (>60); Est Glom Filt Rate - Afr Amer 111 mL/min (>60); Glucose 166 mg/dL (74-106); High Density Lipoprotein 47 mg/dL; Potassium 4.2 mmol/L (3.5-5.1); Protein, Total 7.8 g/dL (6.4-8.2); Sodium Level 137 mmol/L (136-145); Triglycerides 157 mg/dL; Very Low Density Lipoprotein 31 mg/dL (5-40)
== END | disposition home or self-care (01) ==
PROVIDERS: PCP Nurse Practitioner; Referring Provider Nurse Practitioner; Visit Provider Nurse Practitioner
DX: Z00.00 Encounter for general adult medical examination without abnormal findings (principal)
CPT/HCPCS: 80053; 80061; 85025

== ENCOUNTER → 2025-03-26 | Outpatient (CLI) | payer BC, SELFPAY | END | disposition home or self-care (01) | PROVIDERS: PCP Nurse Practitioner; Referring Provider Nurse Practitioner; Visit Provider Nurse Practitioner | DX: N30.90 Cystitis, unspecified without hematuria (principal) | CPT/HCPCS: 87086; 87088; 87186 ==

== ENCOUNTER → 2025-06-03 | Outpatient (CLI) | payer BC, SELFPAY ==
--- OUTSIDE RECORDS SUMMARY | 2025-06-03 22:58 | XMS RPT_ITS | CCD ---
Author Organization [facility] Care Team Providers Care Craft Recruiter Name Role Phone CISCO CLARKE Referring Unavailable CISCO CLARKE Primary Care Unavailable BETTY BOBBY Referring Unavailable BETTY BOBBY Attending Unavailable DONTA MORALES Attending Unavailable CISCO CLARKE Primary Care Unavailable CISCO CLARKE Primary Care Unavailable Cisco Clarke Primary Care Provider [phone] Jhony WEB PRODUCTION ARTIST-C, Cisco Primary Care Provider [phone] Jhony WEB PRODUCTION ARTIST-C, Cisco Attending Provider [phone] Jhony WEB PRODUCTION ARTIST-C, Cisco Referring Provider [phone] Clarke WEB PRODUCTION ARTIST, Cisco Referring Unavailable Clarke WEB PRODUCTION ARTIST, Cisco Attending Unavailable Clarke WEB PRODUCTION ARTIST, Cisco Primary Care Unavailable Clarke WEB PRODUCTION ARTIST, Cisco Primary Care Unavailable Clarke WEB PRODUCTION ARTIST, Cisco Referring Unavailable Clarke WEB PRODUCTION ARTIST, Cisco Attending Unavailable Allergies Allergy Classification Reported Allergen(s) Allergy Type Date of Onset Reaction(s) Facility (7 sources) cefdinir Drug Allergy 5 [facility] (7 sources) Linagliptin Drug Allergy 9 [facility] (2 sources) Linagliptin Drug Allergy 9 [facility]ISION [facility] (1 source) Linagliptin Drug Allergy 9 [facility] Repository Medications Current Medications Medication Drug Class(es) Dates Sig (Normalized) Sig (Original) Blood-Glucose Meter (Freestyle [place] Lite) kit (2 sources) Start: 10-08-2024 Blood-Glucose Meter (Freestyle [place] Lite) kit Active 0 .Route October 08, 2024 12:05pm As directed Start: 09-21-2024 End: 10-08-2024 Blood-Glucose Meter (Freesty le [place] Lite) kit Discontinued 0 .Route September 21, 2024 12:00am October 08, 2024 12:05pm As directed cholesterol (1 source) Start: 09-12-2020 cholesterol Active EACH September 11, 2020 11:00pm Cholesterol flakes (1 source) Start: 09-12-2020 Cholesterol flakes Active NMA September 12, 2020 12:00am ciprofloxacin 500 mg oral tablet (1 source) Quinolone Antimicrobial Start: 03-25-2025 take 1 tablet by mouth twice daily Ciprofloxacin Hcl (Cipro) 500 mg tablet Active 500 mg PO TWICE A DAY March 25, 2025 12:00am docosahexaenoic acid 120 mg / eicosapentaenoic acid 180 mg oral capsule (6 sources) omega-3 (Fish Oi l) 1000 MG capsule Take by mouth. 0 Active famotidine 40 mg oral tablet (1 source) Histamine-2 Receptor Antagonist Start: 11-01-2024 take 1 tablet by mouth once daily Famotidine 40 mg tablet Active 40 mg PO daily November 01, 2024 1:00am folic acid 0.4 mg oral tablet (1 source) Start: 03-25-2025 take 0.4 mg by mouth every week Folic Acid 400 mcg tablet Active 0.4 mg PO .weekly March 25, 2025 12:00am gabapentin 300 mg oral capsule (9 sources) Anti-epileptic Agent Start: 12-08-2024 take 2 capsules by mouth at bedtime Gabapentin 300 mg capsule Active 600 mg PO AT BEDTIME 60 December 08, 2024 1:00am Start: 12-20-2022 End: 12-08-2024 take 3 capsules by mouth twice daily Gabapentin 100 mg capsule Discontinued 300 mg PO TWICE A DAY December 12, 2023 4:58pm December 08, 2024 6:06pm Start: 12-20-2022 End: 12-12-2023 take 300 mg by mouth twice daily Gabapentin Active 300 MG PO TWICE A DAY December 12, 2023 3:58pm Start: 12-21-2021 End: 12-20-2022 take 2 capsules by mouth at bedtime Gabapentin 100 mg capsule Discontinued 200 mg PO AT BEDTIME 60 December 21, 2021 1:00am December 20, 2022 5:33pm Start: 12-21-2021 End: 12-20-2022 take 200 mg by mouth at bedtime Gabapentin Discontinue d 200 MG PO AT BEDTIME 60 December 21, 2021 12:00am December 20, 2022 4:33pm leflunomide 20 mg oral tablet (1 source) Antirheumatic Agent Start: 03-25-2025 take 1 tablet by mouth once daily Leflunomide 20 mg tablet Active 20 mg PO daily March 25, 2025 12:00am lisinopril 10 mg oral tablet (20 sources) Angiotensin Converting Enzyme Inhibitor Start: 12-25-2018 End: 12-08-2024 take 1 tablet by mouth once daily Lisinopril 10 mg tablet Active 10 mg PO DAILY December 08, 2024 6:06pm 24 hr lovastatin 40 mg extended release oral tablet (6 sources) HMG-CoA Reductase Inhibitor take 1 tablet by mouth once daily lovastatin (Altoprev) 40 MG 24 hr tablet Take 40 mg by mouth Nightly. 0 Active methotrexate 7.5 mg oral tablet (1 source) Folate Analog Metabolic Inhibitor Start: 03-25-2025 take 1 tablet by mouth every week Methotrexate Sodium 7.5 mg tablet Active 7.5 mg PO EVERY WEEK March 25, 2025 12:00am MULTIVITAMIN ORAL CAPSULE (2 sources) Start: 12-25-2018 take 1 capsule by mouth once daily MULTIVITAMIN ORAL CAPSULE Active 0 .ROUTE .COMPLEX December 25, 2018 1:00am 1 PO QD ; Start: 12-25-2018 take 1 capsule by mo ut once daily MULTIVITAMIN ORAL CAPSULE Active 0 .ROUTE .COMPLEX December 25, 2018 12:00am 1 PO QD ; niacin 500 mg extended release oral capsule (8 sources) Nicotinic Acid Start: 12-25-2018 take 1 capsule by mouth once daily in the morning Niacin 500 mg capsule, extended release Active 500 mg PO EVERY MORNING December 25, 2018 1:00am niacin 500 MG ta blet Take 500 mg by mouth. 0 Active Ceiba-3 Fatty Acids (Fish Oil Concentrate) 1,000 mg capsule (2 sources) Start: 12-25-2018 take 1 capsule by mouth once daily Ceiba-3 Fatty Acids (Fish Oil Concentrate) 1,000 mg capsule Active 1000 mg PO DAILY December 25, 2018 1:00am Start: 12-25-2018 take 1 capsule by mo uth once daily Ceiba-3 Fatty Acids (Fish Oil Concentrate) 1,000 mg capsule Active 1000 MG PO DAILY December 25, 2018 12:00am omeprazole 40 mg delayed release oral capsule (11 sources) Proton Pump Inhibitor Start: 12-08-2024 take 1 capsule by mouth once daily Omeprazole 40 mg capsule,delayed release(DR/EC) Active 40 mg PO daily December 08, 2024 1:00am Start: 12-25-2018 End: 12-08-2024 take 1 capsule by mouth once daily Omeprazole 20 mg capsule,delayed release(DR/EC) Discontinued 20 mg PO DAILY December 12, 2023 5:32pm December 08, 2024 5:15pm pravastatin sodium 40 mg oral tablet (15 sources) HMG-CoA Reductase Inhibitor Start: 12-25-2018 End: 12-08-2024 take 1 tablet by mouth at bedtime Pravastatin 40 mg tablet Active 40 mg PO AT BEDTIME December 08, 2024 6:06pm Psyllium (2 sources) Start: 12-28-2019 take 8 [oz_av] by mouth once daily Psyllium (Fiber Smooth) powder Active 1 tbsp PO DAILY December 28, 2019 1:00am mix into at least 8 oz of water or juice before administering Start: 12-28-2019 take 8 [oz_av] by mo uth once daily Psyllium (Fiber Smooth) powder Active 1 tbsp PO DAILY December 28, 2019 12:00am mix into at least 8 oz of water or juice before administering Tirzepatide (Mounjaro) 10 mg /0.5 mL pen injector (1 source) Start: 03-25-2025 Tirzepatide (M ounjaro) 10 mg/0.5 mL pen injector Active 10 mg SC EVERY WEEK 2.5 March 25, 2025 12:00am Pstxwdql-Wqjm-Clkrh-Oreg-Cap ry (1 source) Start: 12-21-2021 Turmeric-Ging- Yhzlw-Iiuu-Gepvq Active CAP PO December 21, 2021 12:00am Dzlhvghj-Pseg-Nayiq-Oreg-Cap ry 100 mg-150 mg- 50 mg-150 mg capsule (1 source) Start: 12-21-2021 Turmeric-Ging- Rsjyt-Yzei-Llryj 100 mg-150 mg- 50 mg-150 mg capsule Active NMA PO December 21, 2021 1:00am Completed/Discontinued Medications Medication Drug Class(es) Dates Sig (Normalized) Sig (Original) Blood-Glucose Meter (Accu-Chek Kasia) misc (2 sources) Start: 12-25-2018 End: 09-21-2024 Blood-Glucose Meter (Accu-Chek Kasia) misc Discontinued 0 .ROUTE .MEDSUPPLY December 25, 2018 1:00am September 21, 2024 6:46pm As directed Start: 12-25-2018 Blood-Glucose Meter (Accu-Chek Kasia) misc Active 0 .ROUTE .MEDSUPPLY December 25, 2018 12:00am As directed 12 hr buPROPion hydrochloride 150 mg extended release oral tablet (10 sources) Aminoketone Start: 12-25-2018 End: 12-12-2023 take 1 tablet by mouth twice daily Bupropion Hcl 150 mg tablet sustained-release 12 hr Discontinued 150 mg PO TWICE A DAY 60 December 20, 2022 5:34pm December 12, 2023 4:57pm empagliflozin 10 mg oral tablet (4 sources) Sodium-Glucose Cotransporter 2 Inhibitor Start: 12-25-2018 End: 12-28-2019 take 1 tablet by mouth once daily Empagliflozin (Jardiance) 10 mg tablet Discontinued 10 mg PO DAILY 90 January 20, 2019 5:19pm December 28, 2019 5:32pm ezetimibe 10 mg oral tablet (20 sources) Dietary Cholesterol Absorption Inhibitor Start: 12-25-2018 End: 12-08-2024 take 1 tablet by mouth once daily Ezetimibe (Zetia) 10 mg tablet Discontinued 10 mg PO DAILY July 13, 2020 6:15pm December 19, 2020 5:37pm glimepiride 2 mg oral tablet (20 sources) Sulfonylurea Start: 12-21-2021 End: 11-01-2024 take 1 tablet by mouth once daily Glimepiride 2 mg tablet Discontinued 2 mg PO DAILY December 12, 2023 4:58pm November 01, 2024 5:33pm Start: 12-28-2019 End: 12-20-2022 take 1 tablet by mouth once daily Glimepiride 4 mg tablet Discontinued 4 mg PO DAILY December 19, 2020 5:35pm December 20, 2022 5:33pm Start: 12-25-2018 End: 12-25-2018 take 1 tablet by mouth once daily in the morning Glimepiride 4 mg tablet Discontinued 4 mg PO EVERY MORNING December 25, 2018 1:00am December 25, 2018 6:24pm 10 ml lidocaine hydrochloride 10 mg/ml injection (2 sources) Antiarrhythmic, Amide Local Anesthetic Start: 07-09-2023 End: 07-09-2023 lidocaine (Xylocaine) 1 % injection 4 mL metFORMIN hydrochloride 1000 mg oral tablet (20 sources) Biguanide Start: 12-25-2018 End: 11-01-2024 take 1 tablet by mouth twice daily Metformin 1,000 mg tablet Discontinued 1000 mg PO TWICE A DAY December 12, 2023 4:59pm November 01, 2024 5:33pm take 1 tablet by rudy th once daily at breakfast, then take 1 tablet by mouth every twenty-four hours metFORMIN, MOD, (Glumetza) 1000 MG 24 hr tablet Take 1,000 mg by mouth daily (with breakfast). 0 Active pioglitazone 45 mg oral tablet (12 sources) Peroxisome Proliferator Receptor alpha Agonist, Peroxisome Proliferator Receptor gamma Agonist, Thiazolidinedione Start: 12-28-2019 End: 11-01-2024 take 1 tablet by mouth once daily Pioglitazone 45 mg tablet Discontinued 45 mg PO DAILY December 12, 2023 4:59pm November 01, 2024 5:33pm Start: 12-25-2018 End: 12-25-2018 take 1 tablet by mouth once daily Pioglitazone 45 mg tablet Discontinued 45 mg PO DAILY December 25, 2018 1:00am December 25, 2018 6:25pm sulfamethoxazole 800 mg / trimethoprim 160 mg oral tablet (2 sources) Dihydrofolate Reductase Inhibitor Antibacterial, Sulfonamide Antimicrobial Start: 09-12-2020 End: 09-22-2020 Sulfamethoxazole-Trimethopri m 800-160 mg tablet Discontinued 1 {tbl} PO TWICE A DAY 12 09September 12, 2020 12:00am September 21, 2020 12:00am September 22, 2020 12:03am Start: 09-12-2020 End: 09-22-2020 take 1 tablet by mouth twice daily Sulfamethoxazole-Trimethoprim Discontinu ed 1 TABLET PO TWICE A DAY 12 09September 11, 2020 11:00pm September 21, 2020 11:03pm Tirzepatide (Mounjaro) 2.5 mg/0.5 mL pen injector (1 source) Start: 09-21-2024 End: 12-08-2024 Tirzepatide (Mounjaro) 2.5 mg/0.5 mL pen injector Discontinued 2.5 mg SC EVERY WEEK 6.5 September 21, 2024 12:00am December 08, 2024 5:13pm for 4 weeks Tirzepatide (Mounjaro) 7.5 mg/0.5 mL pen injector (1 source) Start: 12-08-2024 End: 03-25-2025 Tirzepatide (Mounjaro) 7.5 mg/0.5 mL pen injector Discontinued 7.5 mg SC EVERY WEEK 2.5 December 08, 2024 1:00am March 25, 2025 4:17pm Tirzepatide 5 mg/0.5 mL pen injector (1 source) Start: 11-04-2024 End: 12-08-2024 Tirzepatide 5 mg/0.5 mL pen injector Discontinued 5 mg SC EVERY WEEK 6.5 November 04, 2024 1:00am December 08, 2024 5:13pm 1 ml triamcinolone acetonide 40 mg/ml injection (2 sources) Corticosteroid Start: 07-09-2023 End: 07-09-2023 triamcinolone acetonide (Kenalog-40) injection 80 mg Problems Active Problems Problem Classification Problem Date Documented Da te Episodic/Chronic Disorders of lipid metabolism (2 sources) Hyperlipidemia; Translations: [Hyperlipidemia, unspecified] 12-25-2018 Chronic Essential hypertension (2 sources) Hypertensive disorder; Translations: [Essential (primary) hypertension] 12-19-2020 Chronic Nausea and vomiting (1 source) Nausea; Translations: [Nausea] 09-21-2024 Episodic Other gastrointestinal disorders (1 source) Heartburn; Translations: [Heartburn] 11-02-2024 Episodic Other gastrointestinal disorders (1 source) Diarrhea; Translations: [Diarrhea, unspecified] 09-21-2024 Episodic Other inflammatory condition of skin (1 source) Psoriasis; Translations: [Psoriasis, unspecified] 03-25-2025 Chronic Other screening for suspected conditions (not mental disorders or infectious disease) (2 sources) Patient encounter status; Translations: [Encounter for screening mammogram for malignant neoplasm of breast] 12-25-2018 Episodic Skin and subcutaneous tissue infections (4 sources) Furuncle of trunk; Translations: [Furuncle of trunk, unspecified] 09-12-2020 Episodic Sprains and strains (14 sources) Strain of muscle of upper limb; Translations: [Strain of muscle, fascia and tendon of other parts of biceps, right arm, initial encounter] Onset: 05-14-2023 05-14-2023 Episodic Unclassified (2 sources) Diabetes mellitus type 2, uncontrolled, without complications; Translations: [Uncontrolled diabetes mellitus type 2 without complications] 12-25-2018 Urinary tract infections (2 sources) Cystitis; Translations: [Cystitis, unspecified without hematuria] Onset: 03-30-2025 03-25-2025 Episodic Past or Other Problems Problem Classification Problem Date Documented Da te Episodic/Chronic Unclassified (2 sources) ABLATION OF THE UTERUS 06-24-2022 Results Test Name Value Interpretation Reference Range Facility Urine Cultureon 03-28-2025 [facility] Presumptive E. coli Donalds Count >100,000 Presumptive E. coli: REACTION Ampicillin Islt CYNTHIA >=32 Ampicillin+Sulbac Islt CYNTHIA 16 I Cefepime Islt CYNTHIA <=0.12 S cefTRIAXone Islt CYNTHIA <=0.25 S Ciprofloxacin Islt CYNTHIA <=0.06 S B-Lactamase Extended Susc Islt NEG Gentamicin Islt CYNTHIA >=16 R levoFLOXacin Islt CYNTHIA <=0.12 S Meropenem Islt CYNTHIA <=0.25 S Nitrofurantoin Islt CYNTHIA <=16 S Pip+Tazo Islt CYNTHIA <=4 S TMP SMX Islt CYNTHIA >=320 R Normal [facility] Comment on above: Performed By: #### M 100.2200 #### [facility] [address] [place], [place], [id number] Laboratory - Chemistry and C hemistry - challengeOrdered By: Cisco Clarke on 03-25-2025 Bilirubin Ql (U) Negative [facility] Glucose Ql (U) Negative [facility] Ketones Ql (U) Negative [facility] pH (U) 5.5 [pH] [facility] Specific gravity (U) [Rel density] 1.015 [facility] Urobilinogen (U) [Mass/Vol] 0.1168999 mg/dL [facility] - Hematology and Cell countsOrdered By: Cisco Clarke on 03-25-2025 HbA1c (Bld) [Mass fraction] 8.7 % High 4.2-6.3 [facility] Hemoglobin Ql (U) Negative [facility] - Specimen inform ationOrdered By: Cisco Clarke on 03-25-2025 Clarity (U) Clear [facility] Color (U) Yellow [facility] Laboratory - UrinalysisOrder ed By: Cisco Clarke on 03-25-2025 Nitrite Ql (U) Negative [facility] Protein Ql (U) Negative [facility] No Panel InformationOrdered By: Cisco Clarke on 03-25-2025 Urine Leukocytes Positive [facility] Urine Non-Hemolyzed Blood [facility] Urine cultureOrdered By: Tyler Clarke on 03-25-2025 Bacteria identified Cx Nom (U) Presumptive E. coli Abnormal [facility] Absolute lymphocyte countOrd ered By: Cisco Clarke on 12-08-2024 Lymphocytes Auto (Unsp spec) [#/Vol] 2.96 10*3/uL 0.83-4.51 [facility] Absolute neutrophil countOrd ered By: Cisco Clarke on 12-08-2024 Neutrophils (Bld) [#/Vol] 3.6 10*3/uL 2.0-7.7 [facility] Albumin to globulin ratioOrd ered By: Cisco Clarke on 12-08-2024 Albumin/Globulin [Mass ratio] 1.0 {ratio} 0.9-2.4 [facility] Automated lymphocyte count a s percentage of total leukocytesOrdered By: Cisco Clarke on 12-08-2024 Lymphocytes/100 WBC Auto (Unsp spec) 40.0 % 19-41 [facility] Basophil percentageOrdered B y: Cisco Clarke on 12-08-2024 Basophils/100 WBC (Bld) 0.7 % 0-1 [facility] Bilirubin, totalOrdered By: Cisco Clarke on 12-08-2024 Bilirubin [Mass/Vol] 0.50 mg/dL 0.20-1.00 [facility] Comment on above: For patients on eltr ombopag therapy, use of Dimension [place] TBIL is not recommended. Blood urea nitrogen (BUN)/cr eatinine ratioOrdered By: Cisco Clarke on 12-08-2024 Urea nitrogen/Creatinine [Mass ratio] 17.2 mg/mg 10-20 [facility] CBC W/Diff, Automatedon 11-24 Absolute Lymph 2.96 X10 3/uL Normal 0.83-4.51 [facility] Comment on above: Performed By: #### L 100.0100, L500.4050, L500.4100 #### [facility] [address] [place], [address] Absolute Neut 3.6 X10 3/uL Normal 2.0-7.7 [facility] Comment on above: Performed By: #### L 100.0100, L500.4050, [id number] #### [facility] [address] [place], [address] Basophils/100 WBC (Bld) 0.7 % Normal 0-1 [facility] Comment on above: Performed By: #### L 100.0100, L500.4050, [id number] #### [facility] [address] [place], [address] Eosinophils/100 WBC (Bld) 2.3 % Normal 0-5 [facility] Comment on above: Performed By: #### L 100.0100, L500.4050, L500.4100 #### [facility] [address] [place], [address] Erythrocyte distribution width (RBC) [Ratio] 12.7 % Normal 11.6-14.6 [facility] Comment on above: Performed By: #### L 100.0100, L500.4050, [id number] #### [facility] [address] [place], [address] Hematocrit (Bld) [Volume fraction] 40.3 % Normal 37-47 [facility] Comment on above: Performed By: #### L 100.0100, L500.4050, [id number] #### [facility] [address] [place], [address] Hemoglobin (Bld) [Mass/Vol] 13.5 g/dL Normal 12.0-15.0 [facility] Comment on above: Performed By: #### L 100.0100, L500.4050, L500.4100 #### [facility] [address] [place], [address] IG% 0.100 Normal 0.0-0.9 [facility] Comment on above: Result Comment: IG% - Immature Granulocytes (promyelocytes, myelocytes and metamyelocytes) > 1% indicates that a LEFT SHIFT is Present. Performed By: #### L 100.0100, L500.4050, L500.4100 #### [facility] [address] [place], [address] Lymphocytes/100 WBC (Bld) 40.0 % Normal 19-41 [facility] Comment on above: Performed By: #### L 100.0100, L500.4050, L500.4100 #### [facility] [address] [place], [address] MCH (RBC) [Entitic mass] 30.7 pg Normal 27.0-32.0 [facility] Comment on above: Performed By: #### L 100.0100, L500.4050, L500.4100 #### [facility] [address] [place], [address] MCHC (RBC) [Mass/Vol] 33.5 g/dL Normal 32-36 [facility] Comment on above: Performed By: #### L 100.0100, L500.4050, [id number] #### [facility] [address] [place], [address] MCV (RBC) [Entitic vol] 91.6 fL Normal 81-99 [facility] Comment on above: Performed By: #### L 100.0100, L500.4050, L500.4100 #### [facility] [address] [place], [address] Monocytes/100 WBC (Bld) 8.4 % Normal 0-10 [facility] Comment on above: Performed By: #### L 100.0100, L500.4050, L500.4100 #### [facility] [address] [place], [address] Neutrophils/100 WBC (Bld) 48.5 % Normal 47-70 [facility] Comment on above: Performed By: #### L 100.0100, L500.4050, L500.4100 #### [facility] [address] [place], [address] Nucleated RBC (Bld) [#/Vol] 0 10*3/uL Normal 0-5 [facility] Comment on above: Performed By: #### L 100.0100, L500.4050, L500.4100 #### [facility] [address] [place], [id number] Platelet mean volume (Bld) [Entitic vol] 10.0 fL Normal 6.2-12.0 [facility] Comment on above: Performed By: #### L 100.0100, L500.4050, L500.4100 #### [facility] [address] [place], [id number] Platelets (Bld) [#/Vol] 269 10*3/uL Normal 150-450 [facility] Comment on above: Performed By: #### L 100.0100, L500.4050, L500.4100 #### [facility] [address] [place], [id number] RBC (Bld) [#/Vol] 4.40 10*6/uL Normal 4.2-5.4 [facility] Comment on above: Performed By: #### L 100.0100, L500.4050, L500.4100 #### [facility] [address] [place], [address] RDW SD 42.1 fl Normal 35.1-43.9 [facility] Comment on above: Performed By: #### L 100.0100, L500.4050, [id number] #### [facility] [address] [place], [address] WBC (Bld) [#/Vol] 7.4 10*3/uL Normal 4.4-11.0 [facility] Comment on above: Performed By: #### L 100.0100, L500.4050, L500.4100 #### [facility] [address] [place], [address] Carbon dioxide measurementOr dered By: Cisco Clarke on 12-08-2024 CO2 [Moles/Vol] 28.0 mmol/L 21.0-32.0 [facility] Chloride measurementOrdered By: Cisco Clarke on 12-08-2024 Chloride [Moles/Vol] 103 mmol/L 98-107 [facility] Comprehensive Metabolic Prof ilon 12-08-2024 Albumin [Mass/Vol] 3.8 g/dL Normal 3.2-5.0 [facility] Comment on above: Performed By: #### L 100.0100, L500.4050, L500.4100 #### [facility] [address] [place], [address] Albumin/Globulin [Mass ratio] 1.0 {ratio} Normal 0.9-2.4 [facility] Comment on above: Performed By: #### L 100.0100, L500.4050, [id number] #### [facility] [address] [place], [address] ALK P 89 U/L Normal 45-117 [facility] Comment on above: Performed By: #### L 100.0100, L500.4050, L500.4100 #### [facility] [address] [place], [id number] ALT [Catalytic activity/Vol] 24 U/L Normal 13-56 [facility] Comment on above: Performed By: #### L 100.0100, L500.4050, L500.4100 #### [facility] [address] [place], [id number] AST [Catalytic activity/Vol] 11 U/L Low 15-37 [facility] Comment on above: Performed By: #### L 100.0100, L500.4050, L500.4100 #### [facility] [address] [place], [id number] Bilirubin [Mass/Vol] 0.50 mg/dL Normal 0.20-1.00 [facility] Comment on above: Result Comment: For patients on eltrombopag therapy, use of Dimension [place] TBIL is not recommended. Performed By: #### L 100.0100, L500.4050, [id number] #### [facility] [address] [place], [id number] BUN/CRE 17.2 RATIO Normal 10-20 [facility] Comment on above: Performed By: #### L 100.0100, L500.4050, L500.4100 #### [facility] [address] [place], [id number] CA,Total 9.6 mg/dL Normal 8.5-10.1 [facility] Comment on above: Performed By: #### L 100.0100, L500.4050, [id number] #### [facility] [address] [place], [id number] Chloride [Moles/Vol] 103 mmol/L Normal 98-107 [facility] Comment on above: Performed By: #### L 100.0100, L500.4050, L500.4100 #### [facility] [address] [place], [address] CO2 [Moles/Vol] 28.0 mmol/L Normal 21.0-32.0 [facility] Comment on above: Performed By: #### L 100.0100, L500.4050, L500.4100 #### [facility] [address] [place], [address] Creatinine [Mass/Vol] 0.70 mg/dL Normal 0.55-1.02 [facility] Comment on above: Result Comment: The validity of the calculated GFR GFRAA in patients over 70 years has not been determined. Clinical correlation is essential. Performed By: #### L 100.0100, L500.4050, L500.4100 #### [facility] [address] [place], [address] EST GFR - AA 111 mL/min Normal >60 [facility] Comment on above: Result Comment: Afri can Vietnamese GFR Calc Performed By: #### L 100.0100, L500.4050, L500.4100 #### [facility] [address] [place], [address] GAP 6 Normal 5-15 [facility] Comment on above: Performed By: #### L 100.0100, L500.4050, L500.4100 #### [facility] [address] [place], [address] GFR/1.73 sq M.predicted among non-blacks MDRD (S/P/Bld) [Vol rate/Area] 92 mL/min/{1.73_m2} Normal >60 [facility] Comment on above: Result Comment: Non- GFR Calc Performed By: #### L 100.0100, L500.4050, L500.4100 #### [facility] [address] [place], [address] Globulin (S) [Mass/Vol] 4.0 g/dL Normal 2.2-4.2 [facility] Comment on above: Performed By: #### L 100.0100, L500.4050, L500.4100 #### [facility] [address] [place], [address] Glucose [Mass/Vol] 166 mg/dL High 74-106 [facility] Comment on above: Result Comment: Fast ing Glucose result greater than or equal to 126 mg/dL suggests DIABETES MELLITUS per A.D.A. criteria. Performed By: #### L 100.0100, L500.4050, L500.4100 #### [facility] [address] [place], [address] Potassium [Moles/Vol] 4.2 mmol/L Normal 3.5-5.1 [facility] Comment on above: Performed By: #### L 100.0100, L500.4050, L500.4100 #### [facility] [address] [place], [address] Sodium [Moles/Vol] 137 mmol/L Normal 136-145 [facility] Comment on above: Performed By: #### L 100.0100, L500.4050, L500.4100 #### [facility] [address] [place], [address] T PROT 7.8 g/dL Normal 6.4-8.2 [facility] Comment on above: Performed By: #### L 100.0100, L500.4050, L500.4100 #### [facility] [address] [place], [address] Urea nitrogen [Mass/Vol] 12 mg/dL Normal 7-18 [facility] Comment on above: Performed By: #### L 100.0100, L500.4050, L500.4100 #### [facility] [place], [address] Eosinophil percentageOrdered By: Cisco Clarke on 12-08-2024 Eosinophils/100 WBC (Bld) 2.3 % 0-5 [facility] Erythrocyte distribution wid th ratioOrdered By: Cisco Clarke on 12-08-2024 Erythrocyte distribution width (RBC) [Ratio] 12.7 % 11.6-14.6 [facility] Erythrocyte distribution wid th standard deviationOrdered By: Cisco Clarke on 12-08-2024 Erythrocyte distribution width (RBC) [Ratio] 42.1 fl 35.1-43.9 [facility] Glomerular filtration rate ( GFR) estimationOrdered By: Cisco Clarke on 12-08-2024 GFR/1.73 sq M.predicted among non-blacks MDRD (S/P/Bld) [Vol rate/Area] 92 mL/min/{1.73_m2} >60 [facility] Comment on above: Non- GFR Calc Glucose measurementOrdered B y: Cisco Clarke on 12-08-2024 Glucose [Mass/Vol] 166 mg/dL High 74-106 [facility] Comment on above: Fasting Glucose resu lt greater than or equal to 126 mg/dL suggests DIABETES MELLITUS per A.D.A. criteria. Hematocrit Auto (Bld) [Volum e fraction]Ordered By: Cisco Clarke on 12-08-2024 Hematocrit (Bld) [Volume fraction] 40.3 % 37-47 [facility] Hemoglobin measurementOrdere d By: Cisco Clarke on 12-08-2024 Hemoglobin (Bld) [Mass/Vol] 13.5 g/dL 12.0-15.0 [facility] High density lipoprotein (HD L) measurementOrdered By: Cisco Clarke on 12-08-2024 Cholesterol in HDL [Mass/Vol] 47 mg/dL >40 [facility] Comment on above: The drugs N-Acetylcy steine and Metamizole may falsely depress this assay. Reference Range HDL <40 mg/dL Low HDL Cholesterol HDL >or= 60 mg/dL High HDL Cholesterol Immature granulocytes/100 WB C Auto (Bld)Ordered By: Cisco Clarke on 12-08-2024 Immature granulocytes/100 WBC (Bld) 0.100 % 0.0-0.9 [facility] Comment on above: IG% - Immature Granu locytes (promyelocytes, myelocytes and metamyelocytes) > 1% indicates that a LEFT SHIFT is Present. Laboratory - Chemistry and C hemistry - challengeOrdered By: Cisco Clarke on 12-08-2024 AST [Catalytic activity/Vol] 11 U/L Low 15-37 [facility] - Hematology and Cell countson 12-08-2024 HbA1c (Bld) [Mass fraction] 8.2 % High 4.2-6.3 [facility] Lipid Profileon 12-08-2024 Cholesterol [Mass/Vol] 169 mg/dL Normal 200 [facility] Comment on above: Result Comment: <200 mg/dL Desirable 200-240 mg/dL Borderline >240 mg/dL High Risk Performed By: #### L 100.0100, L500.4050, L500.4100 #### [facility] [address] [place], [address] Cholesterol in HDL [Mass/Vol] 47 mg/dL Normal [facility] Comment on above: Result Comment: The drugs N-Acetylcysteine and Metamizole may falsely depress this assay. Reference Range HDL <40 mg/dL Low HDL Cholesterol HDL >or= 60 mg/dL High HDL Cholesterol Performed By: #### L 100.0100, L500.4050, L500.4100 #### [facility] [address] [place], [address] Cholesterol in LDL [Mass/Vol] 91 mg/dL Normal 0-130 [facility] Comment on above: Performed By: #### L 100.0100, L500.4050, L500.4100 #### [facility] [address] [place], [address] Cholesterol in VLDL [Mass/Vol] 31 mg/dL Normal 5-40 [facility] Comment on above: Performed By: #### L 100.0100, L500.4050, L500.4100 #### [facility] [address] [place], [address] Triglyceride [Mass/Vol] 157 mg/dL Normal [facility] Comment on above: Result Comment: The drugs N-Acetylcysteine and Metamizole may falsely depress this assay. Serum Triglycerides Reference Interval Normal <150 mg/dL Borderline high 150 - 199 mg/dL High 200 - 499 mg/dL Very High > or = 500 mg/dL Performed By: #### L 100.0100, L500.4050, L500.4100 #### [facility] [address] [place], [place], [id number] Low density lipoprotein (LDL ) cholesterol measurementOrdered By: Cisco Clarke on 12-08-2024 Cholesterol in LDL [Mass/Vol] 91 mg/dL 0-130 [facility] MCV (mean corpuscular volume ) determinationOrdered By: Cisco Clarke on 12-08-2024 MCV (RBC) [Entitic vol] 91.6 fL 81-99 [facility] Mean corpuscular hemoglobin (MCH) determinationOrdered By: Cisco Clarke on 12-08-2024 MCH (RBC) [Entitic mass] 30.7 pg 27.0-32.0 [facility] Mean corpuscular hemoglobin concentration (MCHC) determinationOrdered By: Cisco Clarke on 12-08-2024 MCHC (RBC) [Mass/Vol] 33.5 g/dL 32-36 [facility] Mean platelet volume determi nationOrdered By: Cisco Clarke on 12-08-2024 Platelet mean volume (Bld) [Entitic vol] 10.0 fL 6.2-12.0 [facility] Monocyte percentageOrdered B y: Cisco Clarke on 12-08-2024 Monocytes/100 WBC (Bld) 8.4 % 0-10 [facility] Neutrophil percentageOrdered By: Cisco Clarke on 12-08-2024 Neutrophils/100 WBC (Bld) 48.5 % 47-70 [facility] Nucleated red blood cell per centageOrdered By: Cisco Clarke on 12-08-2024 Nucleated RBC/100 WBC (Bld) [Ratio] 0 % 0-5 [facility] Platelet countOrdered By: Do ra Clarke on 12-08-2024 Platelets (Bld) [#/Vol] 269 10*3/uL 150-450 [facility] Potassium measurementOrdered By: Cisco Clarke on 12-08-2024 Potassium [Moles/Vol] 4.2 mmol/L 3.5-5.1 [facility] RBC Auto (Bld) [#/Vol]Ordere d By: Cisco Clarke on 12-08-2024 RBC (Bld) [#/Vol] 4.40 10*6/uL 4.2-5.4 [facility] Serum anion gap measurementO rdered By: Cisco Clarke on 12-08-2024 Anion gap [Moles/Vol] 6 mmol/L 5-15 [facility] Serum globulin measurementOr dered By: Cisco Clarke on 12-08-2024 Globulin (S) [Mass/Vol] 4.0 g/dL 2.2-4.2 [facility] Serum or plasma alanine giles otransferase (ALT) measurementOrdered By: Cisco Clarke on 12-08-2024 ALT [Catalytic activity/Vol] 24 U/L 13-56 [facility] Serum or plasma albumin tati urement (mass/volume)Ordered By: Cisco Clarke on 12-08-2024 Albumin [Mass/Vol] 3.8 g/dL 3.2-5.0 [facility] Serum or plasma alkaline spencer sphatase measurementOrdered By: Cisco Clarke on 12-08-2024 ALP [Catalytic activity/Vol] 89 U/L 45-117 [facility] Serum or plasma calcium tati urement (mass/volume)Ordered By: Cisco Clarke on 12-08-2024 Calcium [Mass/Vol] 9.6 mg/dL 8.5-10.1 [facility] Serum or plasma cholesterol measurement (mass/volume)Ordered By: Cisco Clarke on 12-08-2024 Cholesterol [Mass/Vol] 169 mg/dL <200 [facility] Comment on above: <200 mg/dL Desirable 200-240 mg/dL Borderline >240 mg/dL High Risk Serum or plasma creatinine m easurement (mass/volume)Ordered By: Cisco Clarke on 12-08-2024 Creatinine [Mass/Vol] 0.70 mg/dL 0.55-1.02 [facility] Comment on above: The validity of the calculated GFR & GFRAA in patients over 70 years has not been determined. Clinical correlation is essential. Serum or plasma urea nitroge n measurement (mass/volume)Ordered By: Cisco Clarke on 12-08-2024 Urea nitrogen [Mass/Vol] 12 mg/dL 7-18 [facility] Sodium levelOrdered By: Cisco Clarke on 12-08-2024 Sodium [Moles/Vol] 137 mmol/L 136-145 [facility] Total proteinOrdered By: Tyler Clarke on 12-08-2024 Protein [Mass/Vol] 7.8 g/dL 6.4-8.2 [facility] Triglycerides measurementOrd ered By: Cisco Clarke on 12-08-2024 Triglyceride [Mass/Vol] 157 mg/dL <199 [facility] Comment on above: The drugs N-Acetylcy steine and Metamizole may falsely depress this assay.Serum Triglycerides Reference Interval Normal <150 mg/dL Borderline high 150 - 199 mg/dL High 200 - 499 mg/dL Very High > or = 500 mg/dL Very low density lipoprotein (VLDL) cholesterol measurementOrdered By: Cisco Clarke on 12-08-2024 Very low density lipoprotein (VLDL) cholesterol measurement 31 mg/dL 5-40 [facility] White blood cell (WBC) count Ordered By: Cisco Clarke on 12-08-2024 WBC (Bld) [#/Vol] 7.4 10*3/uL 4.4-11.0 [facility] Absolute lymphocyte countOrd ered By: Cisco Clarke on 12-12-2023 Lymphocytes Auto (Unsp spec) [#/Vol] 3.13 10*3/uL 0.83-4.51 [facility] Automated lymphocyte count a s percentage of total leukocytesOrdered By: Cisco Clarke on 12-12-2023 Lymphocytes/100 WBC Auto (Unsp spec) 50.6 % - [facility] Basophil percentageOrdered B y: Cisco Clarke on 12-12-2023 Basophils/100 WBC (Bld) 1.1 % 0-1 [facility] Bilirubin [Mass/Vol] 0.30 mg/dL 0.20-1.00 [facility] Comment on above: For patients on eltr ombopag therapy, use of Dimension [place] TBIL is not recommended. Chloride [Moles/Vol] 107 mmol/L 98-107 [facility] Cholesterol [Mass/Vol] 186 mg/dL <200 [facility] Comment on above: <200 mg/dL Desirable 200-240 mg/dL Borderline >240 mg/dL High Risk Eosinophils/100 WBC (Bld) 5.2 % 0-5 [facility] Glucose [Mass/Vol] 137 mg/dL 74-106 [facility] Comment on above: Fasting Glucose resu lt greater than or equal to 126 mg/dL suggests DIABETES MELLITUS per A.D.A. criteria. Hemoglobin (Bld) [Mass/Vol] 13.3 g/dL 12.0-15.0 [facility] Monocytes/100 WBC (Bld) 8.1 % 0-10 [facility] Neutrophils (Bld) [#/Vol] 2.1 10*3/uL 2.0-7.7 [facility] Neutrophils/100 WBC (Bld) 34.7 % 47-70 [facility] Potassium [Moles/Vol] 4.3 mmol/L 3.5-5.1 [facility] Protein [Mass/Vol] 7.2 g/dL 6.4-8.2 [facility] Sodium [Moles/Vol] 139 mmol/L 136-145 [facility] Triglyceride [Mass/Vol] 118 mg/dL <199 [facility] Comment on above: The drugs N-Acetylcy steine and Metamizole may falsely depress this assay.Serum Triglycerides Reference Interval Normal <150 mg/dL Borderline high 150 - 199 mg/dL High 200 - 499 mg/dL Very High > or = 500 mg/dL WBC (Bld) [#/Vol] 6.2 10*3/uL 4.4-11.0 [facility] Determination of erythrocyte mean corpuscular volume (MCV)Ordered By: Cisco Clarke on 12-12-2023 MCV (RBC) [Entitic vol] 97.2 fL 81-99 [facility] Erythrocyte distribution wid th ratioOrdered By: Cisco Clarke on 12-12-2023 Erythrocyte distribution width (RBC) [Ratio] 13.2 % 11.6-14.6 [facility] Erythrocyte distribution wid th standard deviationOrdered By: Cisco Clarke on 12-12-2023 Erythrocyte distribution width (RBC) [Entitic vol] 47.0 fL 35.1-43.9 [facility] Hematocrit Auto (Bld) [Volum e fraction]Ordered By: Cisco Clarke on 12-12-2023 Hematocrit (Bld) [Volume fraction] 41.1 % 37-47 [facility] High density lipoprotein (HD L) measurementOrdered By: Cisco Clarke on 12-12-2023 Cholesterol in HDL (Body fld) [Mass/Vol] 55 mg/dL >40 [facility] Comment on above: The drugs N-Acetylcy steine and Metamizole may falsely depress this assay. Reference Range HDL <40 mg/dL Low HDL Cholesterol HDL >or= 60 mg/dL High HDL Cholesterol Immature granulocytes/100 WB C Auto (Bld)Ordered By: Cisco Clarke on 12-12-2023 Immature granulocytes/100 WBC (Bld) 0.300 % 0.0-0.9 [facility] Comment on above: IG% - Immature Granu locytes (promyelocytes, myelocytes and metamyelocytes) > 1% indicates that a LEFT SHIFT is Present. Laboratory - Chemistry and C hemistry - challengeOrdered By: Cisco Clarke on 12-12-2023 Albumin/Globulin [Mass ratio] 0.9 {ratio} 0.9-2.4 [facility] ALP [Catalytic activity/Vol] 76 U/L 45-117 [facility] ALT [Catalytic activity/Vol] 27 U/L 13-56 [facility] CO2 [Moles/Vol] 28.0 mmol/L 21.0-32.0 [facility] Globulin (S) [Mass/Vol] 3.7 g/dL 2.2-4.2 [facility] Urea nitrogen/Creatinine [Mass ratio] 22.1 mg/mg 10-20 [facility] - Hematology and Cell countsOrdered By: Cisco Clarke on 12-12-2023 MCH (RBC) [Entitic mass] 31.4 pg 27.0-32.0 [facility] MCHC (RBC) [Mass/Vol] 32.4 g/dL 32-36 [facility] Nucleated RBC/100 WBC (Bld) [Ratio] 0 % 0-5 [facility] Platelets (Bld) [#/Vol] 309 10*3/uL 150-450 [facility] - Hematology and Cell countson 12-12-2023 HbA1c (Bld) [Mass fraction] 7.1 % 4.2-6.3 [facility] Low density lipoprotein (LDL ) cholesterol measurementOrdered By: Cisco Clarke on 12-12-2023 Cholesterol in LDL (Body fld) [Moles/Vol] 107 mg/dL 0-130 [facility] No Panel InformationOrdered By: Cisco Clarke on 12-12-2023 Estimated GFR (MDRD) Amer 114 mL/min >60 [facility] Comment on above: GFR Calc Estimated GFR (MDRD) Non-Af Amer 95 mL/min >60 [facility] Comment on above: Non- GFR Calc Platelet mean volume Judd-Ec ker (Bld) [Entitic vol]Ordered By: Cisco Clarke on 12-12-2023 Platelet mean volume (Bld) [Entitic vol] 10.1 fL 6.2-12.0 [facility] RBC Auto (Bld) [#/Vol]Ordere d By: Cisco Clarke on 12-12-2023 RBC (Bld) [#/Vol] 4.23 10*6/uL 4.2-5.4 [facility] Serum or plasma calcium tati urement (mass/volume)Ordered By: Cisco Clarke on 12-12-2023 Calcium [Mass/Vol] 9.2 mg/dL 8.5-10.1 [facility] Serum or plasma creatinine m easurement (mass/volume)Ordered By: Cisco Clarke on 12-12-2023 Creatinine [Mass/Vol] 0.68 mg/dL 0.55-1.02 [facility] Comment on above: The validity of the calculated GFR & GFRAA in patients over 70 years has not been determined. Clinical correlation is essential. Serum or plasma urea nitroge n measurement (mass/volume)Ordered By: Cisco Clarke on 12-12-2023 Urea nitrogen [Mass/Vol] 15 mg/dL 7-18 [facility] Thin prep Papanicolaou smear with manual screeningOrdered By: Cisco Clarke on 12-12-2023 Thin prep Papanicolaou smear with manual screening 3.5 g/dL 3.2-5.0 [facility] Thin prep Papanicolaou smear with manual screening 17 U/L 15-37 [facility] Thin prep Papanicolaou smear with manual screening 4 5-15 [facility] Very low density lipoprotein (VLDL) cholesterol measurementOrdered By: Cisco Clarke on 12-12-2023 Cholesterol in VLDL Calc [Moles/Vol] 24 mg/dL 5-40 [facility] Office Visiton 07-09-2023 Follow-up visit [id number] KelvinCarol 1965 F Date Provider Department Center 07/09/2023 [id number] MORALES [facility] Spo None No family history on file Level of Service:67980 [place] OFFICE/OUTPATIENT ESTABLISHED LOW MDM 20-29 MIN Reason for Visit and Comments: Follow-up [964242] - [facility] Right Shoulder Diagnostic Injection Normal [facility] Progress Noteon 07-09-2023 Progress Note [facility] [address] [facility] [address] Dept: [phone] Dept Chief Complaint Patient presents with Follow-up [facility] Right Shoulder Diagnostic Injection Subjective History of Present Illness: Carol Warren follows up today for Right Shoulder Injection. [facility]# [id number], DOI: 03/13/2023 Since the last visit on 05/23/2023, symptoms are unchanged. Current symptoms are pressure, tight/stiff, sharp, shooting, and cramping . She rates symptoms as a 0/10 at rest and a 8/10 at worst. Imaging to date: MRI April 2023 Treatment to date: PT/OT/HEP: yes, formal physical therapy for 1 month. Helpful Ice: no Heat: no Medications: Tylenol: yes, helpful NSAIDs: yes, Ibuprofen/Motrin/Advi l, helpful Oral steroids: no Muscle relaxants: no [...] of focused exam. Physical Exam Musculoskeletal: Comments: Musculoskeletal/Neuro logic: Right Shoulder. Contralateral side is normal unless [...] Normal. Us-Jareth: Normal. Cross Body Adduction: Normal. Denver's Test: Normal. Spurling's: Normal. External Notes None available, unable to view [facility] notes Labs No results found for: [...] was reduced. Assessment No diagnosis found. Plan [facility] Plan Current work status: No change based on my treatment plan today . C9 request: Agree with physical therapy recommendations of extending their visits. No follow-ups on file. Maisha Schwartz MA 07/09/2023 8:30 AM Please note that portions of this note may have been completed with voice recognition software. Documentation reviewed prior to signing but minor errors in guest experience representative may have occurred. [facility] 36on 05-30-2023 36 Called pt to let her know ok to sched PT. She will call to schedule [place] [phone] Let her know ok to schedule , ty [place] [phone] Received approved C9 for phys therapy. Ok to schedule. Copy of approved C9 is scanned to pt media chart [facility] 36on 05-29-2023 36 Ok ty [facility] 36 Faxed C9 for physica l therapy. [facility] 36on 05-23-2023 36 TY! [place] [phone] Faxed C9 for phys therapy to [place] today [facility] Office Visiton 05-23-2023 Follow-up visit [id number] Carol Warren 1965 F Date Provider Department Center 05/23/2023 [id number] MORALES [facility] WAD None No family history on file Level of Service:40082 [place] OFFICE/OUTPATIENT NEW LOW [facility] 30-44 MINUTES Reason for Visit and Comments: New Patient [542] - Right shoulder pain -[facility] PATINSon 05-23-2023 PATINS Rotator Cuff: Strengthening Exercises, Arm raise x 4 Directions 1) Sideways, 0? forwards 2) 30? forward, thumb down 3) 30? forward, thumb up 4) Straight forward, 90? Slowly raise your injured arm each direction. Raise your arm 60?- 80? at the most (shoulder level is 90?) definitely not over the shoulder height. Hold [...] your shoulder relaxed and your elbow bent 90?. Your upper arm should rest comfortably against [...] your shoulder relaxed and your elbow bent 90?. Your upper arm should rest comfortably against [...] 2 10 3 12 3 15 3 Normal [facility] Progress Noteon 05-23-2023 Progress Note [facility] [address] [place] [address] [place] [id number] Dept: [phone] Dept Chief Complaint Patient presents with New Patient Right shoulder pain -[facility] Subjective History of Present Illness: Carol Warren is a 58 y.o. 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 Respiratory: Breathing comfortably on room air. No respiratory distress. Skin: Warm, dry, intact. No visible rashes or erythema overlying area of focused exam. Physical Exam Musculoskeletal: Comments: Musculoskeletal/Neuro logic: Right Shoulder. Contralateral side is normal unless [...] Normal. Us-Jareth: Normal. Cross Body Adduction: Normal. Denver's Test: Normal. Spurling's: Normal. 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 Mild subacromial subdeltoid bursitis with some [...] Mild acromioclavicular and glenohumeral osteoarthropathy. There is pxep-up-sowitdre acromial impingement with mild subacromial subdeltoid bursitis. EMG/NCT N/A Procedure No procedures completed today Assessment Diagnosis Plan 1. Traumatic partial tear of right biceps tendon, initial encounter Ambulatory referral to Physical Therapy 2. Sprain of right shoulder, initial encounter Ambu (more content not included)... Normal [facility] MR Shoulder - right WO maya gillette 05-15-2023 Impression: 1. Torn and retracted proximal long [...] Mild acromioclavicular and glenohumeral osteoarthropathy. There is myuw-gq-eejvjupw acromial impingement with mild subacromial subdeltoid bursitis. Report Dictated on Electronically Signed By: Dionte Davey Electronically Signed Date/Time: 05/15/2023 11:35 AM [facility] [employer] [facility] 1965 [id number] Exam Date/Time: 05/14/2023 13:01 Procedure: MR SHOULDER RIGHT WO IV CONTRAST Ordering Provider: BOBBY MICHELLE Reason For Exam: [id number] Examination: MRI right shoulder Clinical Indication: S46.211A/S43.401A, pain after bicep injury Comparison: None Findings: Multiplanar multisequence high field strength MRI images were obtained through the right shoulder without intravenous gadolinium. No fracture or subluxation. Acromioclavicular joint demonstrates mild osteoarthropathy with degenerative sclerosis and small distal clavicle osteophyte inferiorly. Tiny developing subchondral cyst distal clavicle. Type III acromion with anterior hook causes tqfu-nj-nwmfzxpb impingement. Mild subacromial subdeltoid bursitis with some [...] adhesive capsulitis or a mild capsular sprain. [facility] Dionte Davey MD - 05/15/2023 [facility] Name[facility] 1965 [id number] Exam Date/Time: 05/14/2023 13:01 Procedure: MR SHOULDER RIGHT WO IV CONTRAST Ordering Provider: BOBBY MICHELLE Reason For Exam: S46.211A/S43.401A Examination: MRI right shoulder Clinical Indication: S46.211A/S43.401A, pain after bicep injury Comparison: None Findings: Multiplanar multisequence high field strength MRI images were obtained through the right shoulder without intravenous gadolinium. No fracture or subluxation. Acromioclavicular joint demonstrates mild osteoarthropathy with degenerative sclerosis and small distal clavicle osteophyte inferiorly. Tiny developing subchondral cyst distal clavicle. 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 Mild subacromial subdeltoid bursitis with some [...] Mild acromioclavicular and glenohumeral osteoarthropathy. There is lsjs-qj-lhpybtqd acromial impingement with mild subacromial subdeltoid bursitis. Report Dictated on Electronically Signed By: Dionte Davey Electronically Signed Date/Time: 05/15/2023 11:35 AM EDT [facility] MR Shoulder - right WO contr astOrdered By: Dionte Davey on 05-15-2023 [facility] Work Phone: MR Shoulder - right WO contr leta 05-14-2023 Radiology Study observation (narrative) [facility] rizwana Vital Signs Date Time Vital Sign Value Performing Clinician Bernadette fox 03-25-2025 15:53-0400 Body height 162.56 cm Cisco Clarke NP-C Work Phone: [facility] 03-25-2025 15:53-0400 Body mass index (BMI) [Ratio] 32.2 kg/m2 Cisco Clarke WEB PRODUCTION ARTIST-C Work Phone: [facility] 03-25-2025 15:53-0400 Body temperature 97.5 [degF] Cisco Clarke WEB PRODUCTION ARTIST-C Work Phone: [facility] 03-25-2025 15:53-0400 Body weight 85.27 kg Cisco Clarke WEB PRODUCTION ARTIST-C Work Phone: [facility] 03-25-2025 15:53-0400 Diastolic blood pressure 72 mm[Hg] Cisco Clarke WEB PRODUCTION ARTIST-C Work Phone: [facility] 03-25-2025 15:53-0400 Heart rate 82 /min Cisco Clarke WEB PRODUCTION ARTIST-C Work Phone: [facility] 03-25-2025 15:53-0400 Respiratory rate 18 /min Cisco Clarke WEB PRODUCTION ARTIST-C Work Phone: [facility] 03-25-2025 15:53-0400 SaO2% (BldA) [Mass fraction] 97 % Cisco Clarke WEB PRODUCTION ARTIST-C Work Phone: [facility] 03-25-2025 15:53-0400 Systolic blood pressure 130 mm[Hg] Cisco Clarke WEB PRODUCTION ARTIST-C Work Phone: [facility] 12-08-2024 16:01-0500 Body mass index (BMI) [Ratio] 39.6 kg/m2 Cisco Clarke WEB PRODUCTION ARTIST-C Work Phone: [facility] 12-08-2024 16:01-0500 Body temperature 97.5 [degF] Cisco Clarke WEB PRODUCTION ARTIST-C Work Phone: [facility] 12-08-2024 16:01-0500 Body weight 92.07 kg Cisco Clarke WEB PRODUCTION ARTIST-C Work Phone: [facility] 12-08-2024 16:01-0500 Diastolic blood pressure 80 mm[Hg] Cisco Clarke WEB PRODUCTION ARTIST-C Work Phone: [facility] 12-08-2024 16:01-0500 Heart rate 92 /min Cisco Clarke WEB PRODUCTION ARTIST-C Work Phone: [facility] 12-08-2024 16:01-0500 Respiratory rate 18 /min Cicso Clarke WEB PRODUCTION ARTIST-C Work Phone: [facility] 12-08-2024 16:01-0500 SaO2% (BldA) [Mass fraction] 96 % Cisco VELASQUEZ Work Phone: [facility] 12-08-2024 16:01-0500 Systolic blood pressure 130 mm[Hg] Cisco SIMPSONC Work Phone: [facility] 12-12-2023 15:51-0500 Body height 152.4 cm [facility] 12-12-2023 15:51-0500 Body mass index (BMI) [Ratio] 41.5 kg/m2 [facility] 12-12-2023 15:51-0500 Body temperature 97 [degF] [facility] 12-12-2023 15:51-0500 Body weight 96.61 kg [facility] 12-12-2023 15:51-0500 Diastolic blood pressure 78 mm[Hg] [facility] 12-12-2023 15:51-0500 Heart rate 73 /min [facility] 12-12-2023 15:51-0500 Respiratory rate 18 /min [facility] 12-12-2023 15:51-0500 SaO2% (BldA) [Mass fraction] 97 % [facility] 12-12-2023 15:51-0500 Systolic blood pressure 130 mm[Hg] [facility] 07-09-2023 10:20-0400 Body height 165.1 cm Donta Morales MD Work Phone: [facility] 07-09-2023 10:20-0400 Body mass index (BMI) [Ratio] 33.28 kg/m2 Donta Morales MD Work Phone: [facility] 07-09-2023 10:20-0400 Body weight 90.72 kg Donta Morales MD Work Phone: [facility] 07-09-2023 10:20-0400 Diastolic blood pressure 83 mm[Hg] Donta Morales MD Work Phone: [facility] 07-09-2023 10:20-0400 Systolic blood pressure 141 mm[Hg] Donta Morales MD Work Phone: [facility] 05-23-2023 09:35-0400 Body height 165.1 cm Donta Morales MD Work Phone: [facility] 05-23-2023 09:35-0400 Body mass index (BMI) [Ratio] 33.28 kg/m2 Donta Morales MD Work Phone: [facility] 05-23-2023 09:35-0400 Body weight 90.72 kg Donta Morales MD Work Phone: [facility] 05-23-2023 09:35-0400 Diastolic blood pressure 82 mm[Hg] Donta Morales MD Work Phone: [facility] 05-23-2023 09:35-0400 Systolic blood pressure 110 mm[Hg] Donta Morales MD Work Phone: [facility] Encounters Encounter Date Encounter Type Care Provider Facility Start: 03-26-2025 End: 03-26-2025 ambulatory Cisco Clarke WEB PRODUCTION ARTIST-C Work Phone: [facility] Work Phone: Start: 03-26-2025 End: 03-26-2025 Patient encounter procedure Cisco Clarke WEB PRODUCTION ARTIST-C -Laboratory, Specimen Work Phone: Start: 03-26-2025 End: 03-26-2025 ambulatory Cisco Clarke WEB PRODUCTION ARTIST Facility:[facility] Start: 12-28-2024 Encounter for genera l adult medical examination without abnormal findings Cisco Clarke WEB PRODUCTION ARTIST [facility] Start: 12-08-2024 End: 12-08-2024 Patient encounter procedure Cisco Clarke WEB PRODUCTION ARTIST-C -Laboratory, Specimen Work Phone: Start: 12-08-2024 End: 12-08-2024 ambulatory Cisco Clarke WEB PRODUCTION ARTIST Facility:[facility] Start: 12-12-2023 End: 12-12-2023 ambulatory [facility] Work Phone: Start: 12-12-2023 End: 12-12-2023 Patient encounter procedure [facility]-Laboratory, Specimen Work Phone: Start: 07-09-2023 End: 07-09-2023 ambulatory CISCO CLARKE [facility] Start: 07-09-2023 End: 07-09-2023 Office outpatient visit 15 minutes Donta Morales MD Work Phone: [facility] Comment on above: Sprain of right shou lder, initial encounter; Traumatic partial tear of right biceps tendon, initial encounter Start: 05-29-2023 Telephone encounter Donta bahena MD Work Phone: [facility] Start: 05-23-2023 Telephone encounter Donta bahena MD Work Phone: [facility] Start: 05-23-2023 End: 05-23-2023 ambulatory DONTA MORALES [facility] Start: 05-23-2023 End: 05-23-2023 Office outpatient new 30 minutes Donta Morales MD Work Phone: [facility] Comment on above: Traumatic partial te ar of right biceps tendon, initial encounter (Primary Dx); Sprain of right shoulder, initial encounter Start: 05-14-2023 End: 05-14-2023 Subsequent hospital visit by physician Betty Bobby [employer]MER - PASTOR Work Phone: [facility] Comment on above: Strain of muscle, fa scia and tendon of other parts of biceps, right arm, initial encounter; Unspecified sprain of right shoulder joint, initial encounter Strain of muscle, fa scia and tendon of other parts of biceps, right arm, initial encounter (Primary Dx); Unspecified sprain of right shoulder joint, initial encounter Start: 05-14-2023 End: 05-15-2023 ambulatory CISCOFallon CLARKE [facility] Start: 12-20-2022 Patient encounter status [facility] Start: 01-07-2019 Patient encounter procedure CISCO CLARKE [facility] Procedures Date Procedure Procedure Detail Performing Clinician Start: 03-25-2025 Urine culture Cisco moreno WEB PRODUCTION ARTIST-C Work Phone: Start: 12-08-2024 Measurement of renal function Cisco Calrke WEB PRODUCTION ARTIST-C Work Phone: Comment on above: GFR Calc Start: 01-04-2019 Colonoscopy Betty Siddiqui jose [employer]MER - PA[employer]OR Work Phone: Plan of Treatment Date Care Activity Detail Author Start: 01-04-2029 Screening for malign ant neoplasm of colon [facility] Start: 07-25-2023 Influenza vaccination [facility] Start: 2015 Zoster Vaccines (1 of 2) Zoster Vacc kellie (1 of 2) [facility] Start: 2005 Screening for malign ant neoplasm of breast Mammogram [facility] Start: 1995 Screening for malign ant neoplasm of cervix [facility] Start: 1986 Screening for malign ant neoplasm of cervix Pap Smear [facility] Start: 1984 DTaP/Tdap/Td Vaccine s (1 - Tdap) DTaP/Tdap/Td Vaccines (1 - Tdap) [facility] Start: 1983 Hepatitis C screening Hepatitis C Sc reening [facility] Start: 1977 Depression Screening Depression Scre ening [facility] Start: 1975 Diabetic foot examination Diabetes: Foot Exam [facility] Start: 1975 Glaucoma screening Diabetes: R etinopathy Screening [facility] Start: 1975 Preventive dental service Diabetes: Dental Exam [facility] Start: 1966 MMR Vaccines (1 of 1 - Standard series) MMR Vaccines (1 of 1 - Standard series) [facility] Start: 1965 Hemoglobin A1c measurement Diabetes: Hemoglobin A1C [facility] Start: 1965 Hepatitis B Vaccines (1 of 3 - 3-dose series) Hepatitis B Vaccines (1 of 3 - 3-dose series) [facility] Start: 1965 HIV screening HIV Screening [facility] Start: 1965 Lipid panel Lipid Panel [facility] Start: 1965 Screening for malign ant neoplasm of colon [facility] End: 05-14-2023 MR Shoulder - right WO contrast [facility] Work Phone: Comment on above: Once for 1 Occurrenc es starting 05/14/2023 until 05/14/2023 OUTSIDE PROCEDURE SCAN OUTSIDE P ROCEDURE SCAN Procedures Ordered: 05/14/2023 [facility] Comment on above: Ordered: 05/14/2023 Immunizations Immunization Date Immunization Notes Care Provider Eduardo maldonado 09-01-2014 influenza virus vacc ine, unspecified formulation Betty Bobby [employer] - PA[employer]OR Work Phone: [facility] Payers Date Payer Category Payer Self-pay [id number] 2024 Unknown [id number] 2023 Unknown [id number] 2023 Worker's Compensation [employer] [id number] 2023-Present [address] [place] [address] Worker's Comp [id number] Unknown [facility] [id number] Unknown [id number] Unknown [id number] Social History Date Type Detail Facility Start: 12-19-2022 Tobacco smoking status [facility] Tobacco smoking consumption unknown [facility] Start: 1965 Sex Assigned At Not on file [facility] Start: 05-23-2023 End: 07-09-2023 Gender identity Not on file [facility] Start: 05-04-2023 End: 05-14-2023 Exposure to SARS-CoV-2 (event) Not sure [facility] Start: 05-23-2023 Tobacco smoking status [facility] Ex-smoker [facility] History of tobacco use Current smoker [facility] History of tobacco use Cigarette Smoker [facility] Start: 05-23-2023 Tobacco use and exposure Smokeless tobacco non-user [facility] Start: 05-23-2023 End: 07-09-2023 History of Social function [facility] Start: 1965 Sex Assigned At Female [facility] Start: 12-19-2022 Tobacco smoking status [facility] Smokes tobacco daily (finding) [facility] Medical Equipment Procedure Code Equipment Code Equipment Origin al Text Equipment Identifier Dates Blood Sugar Diagnostic (Freestyle Insulinx) strip Start: 09-21-2024 Lancets (Freesty le Lancets) 28 gauge misc Start: 09-21-2024 Blood Sugar Diagnostic (Freestyle Insulinx) strip Start: 09-21-2024 End: 09-21-2024 Clinical Notes 05-23-2023 to 12-08-2024 Note Date & Type Note Facility 12-08-2024 Evaluation note Diagnosis Onset Date Resolution Wellness examination acute [facility] 2024 3:51pm Cystitis acute March 25, 2025 3:50pm Diabetes mellitus type 2, uncontrolled, without complications acute March 25, 2025 3: 50pm Psoriasis (a type of skin inflammation) acute March 25, 2025 3:50pm [facility] Work Phone: [phone]) 688-988408-16-2023 History of Present illness Narrative* Donta Morales MD - 07/09/2023 10:00 AM EDT Images from the original note were not included. [facility] [address] [facility] [address] Dept: [phone] Dept Chief Complaint Patient presents with Follow-up [facility] Right Shoulder Diagnostic Injection Subjective History of Present Illness: Carol Warren follows up today for Right Shoulder Injection. [facility]# [id number], DOI: 03/13/2023 Since the last visit on [...] Normal. Us-Jareth: Normal. Cross Body Adduction: Normal. Denver's Test: Normal. Spurling's: Normal. External Notes None available, unable to view [facility] notes Labs No results found for: [...] skin. Needle advanced to target without difficulty. Afterthe injection, a bandage was placed over the injection site. The patient tolerated the procedure well with no adverse effects. Post-injection instructions were reviewed with the patient and the patient voiced understanding. Post procedure the shoulder pain was reduced. Assessment No diagnosis found. Plan [facility] Plan Current work status: No change based on my treatment plan today . C9 request: Agree with physical therapy recommendations of extending their visits. No follow-ups on file. Maisha Schwartz MA 07/09/2023 8:30 AM Please note that portions of this note may have been completed with voice recognition software. Documentation reviewed prior to signing but minor errors in guest experience representative may have occurred. documented in this encounterSToledo [id number] Telephone encounter Note* Telephone Encounter - Lupis Ledesma - 05/30/2023 4:15 PM EDT Called pt to let her know ok to sched PT. She will call to schedule [phone] Miscellaneous Notes* Telephone Encounter - Lupis Ledesma - 05/30/2023 4:15 PM EDT Called pt to let her know ok to sched PT. She will call to schedule * Telephone Encounter - Trina Billy MA - 05/30/2023 3:59 PM EDT Let her know ok to schedule , ty * Telephone Encounter - Lupis Ledesma - 05/30/2023 2:57 PM EDT Received approved C9 for phys therapy. Ok to schedule. Copy of approved C9 is scanned to pt media chart * Telephone Encounter - Trina Billy MA - 05/29/2023 10:46 AM EDT Ok ty * Telephone Encounter - Lupis Ledesma - 05/29/2023 10:43 AM EDT Faxed C9 for physical therapy. documented in this encounterSToledo [id number] Telephone encounter Note* Telephone Encounter - Trina Billy MA - 05/30/2023 3:59 PM EDT Let her know ok to schedule , ty [id number] Telephone encounter Note* Telephone Encounter - Lupis Ledesma - 05/30/2023 2:57 PM EDT Received approved C9 for phys therapy. Ok to schedule. Copy of approved C9 is scanned to pt media chart [place] [id number] Telephone encounter Note* Telephone Encounter - Trina Billy MA - 05/29/2023 10:46 AM EDT Ok ty [place] [id number] Miscellaneous Notes* Telephone Encounter - Trina Billy MA - 05/29/2023 10:46 AM EDT Ok ty * Telephone Encounter - Lupis Ledesma - 05/29/2023 10:43 AM EDT Faxed C9 for physical therapy. documented in this encounterSToledo [id number] Telephone encounter Note* Telephone Encounter - Lupis Ledesma - 05/29/2023 10:43 AM EDT Faxed C9 for physical therapy. [id number] Telephone encounter Note* Telephone Encounter - Trina Billy MA - 05/23/2023 10:30 AM EDT TY! [id number] Miscellaneous Notes* Telephone Encounter - Trina Billy MA - 05/23/2023 10:30 AM EDT TY! * Telephone Encounter - Lupis Ledesma - 05/23/2023 10:22 AM EDT Faxed C9 for phys therapy to [facility] today documented in this encounterSToledo [id number] Telephone encounter Note* Telephone Encounter - Lupis Ledesma - 05/23/2023 10:22 AM EDT Faxed C9 for phys therapy to [facility] today [id number] History of Present illness Narrative* Donta Morales MD - 05/23/2023 9:45 AM EDT Images from the original note were not included. [facility] [address] [place] [id number] Dept: [phone] Dept Chief Complaint Patient presents with New Patient Right shoulder pain -[facility] Subjective History of Present Illness: Carol Warren is a 58 y.o. 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 Us-Jareth: Normal. Cross Body Adduction: Normal. Denver's Test: Normal. Spurling's: Normal. External Notes MRI [...] Type III acromion with anterior hook causes dhzg-on-tyvqvkmf impingement. Mild subacromial subdeltoid bursitis with some bursal sided supraspinatus tendon fraying. Long head biceps tendon is torn and retracted. A few thin fibers are seen along the proximal bicipital groove. Subscapularis demonstrates mild tendinitis. There is tiny partial-thickness interstitial tear superiorly series 7 images 11 through 13. Minimal supraspinatus tendinitis, no tear. Infraspinatus and teres minor are normal. No significantatrophy. Small shoulder joint effusion with mild synovitis. Glenohumeral articular cartilage demonstrates mild articular cartilage thinning but no focal or full thickness defect. Glenoid labrum demonstrates age-indeterminate tear of the superior labrum. 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 Tiny glenohumeral osteophytes with minimal degenerative glenoid sclerosis. Capsule demonstrates mild inflammation along the anterior interval and inferiorly which can be seen with adhesive capsulitis or a mildcapsular sprain. IMPRESSION: Impression: 1. Torn and retracted proximal long head biceps tendon. No definite residual intact fibers are seen. 2. Tiny partial interstitial tear of the distal superior subscapularis superimposed on subscapularis and supraspinatus tendinitis. No sizable or full- thickness tear. 3. Mild inflammation within the anterior rotator cuff interval and inferiorly which can be seen with a mild capsular sprain or disease of capsulitis. No tear. 4. Small shoulder joint effusion with mild synovitis. 5. Mild acromioclavicular and glenohumeral osteoarthropathy. There is dtsm-dz-dlecqpyl acromial impingement with mild subacromial subdeltoid bursitis. EMG/NCT N/A Procedure No procedures completed today Assessment Diagnosis Plan 1. Traumatic partial tear of right biceps tendon, initial encounter Ambulatory referral to PhysicalTherapy 2. Sprain of right shoulder, initial encounter Ambulatory referral to Physical Therapy Plan Strongly recommend we start a C9 for initiation of formal physical therapy. Strain supraspinatus muscle right shoulder and strain subscapularis muscle right shoulder should be additional added diagnoses as this is confirmed by her examination and MRI. No follow-ups on file. Donta Morales MD 05/23/2023 9:29 AM Please note that portions of this note may have been completed with voice recognition software. Documentation reviewed prior to signing but minor errors in guest experience representative may have occurred. documented in this [facility]06-30-2023 Instructions* Patient Instructions* Donta Morales MD - 05/23/2023 9:45 AM EDT Images from the original note were not included. Rotator Cuff: Strengthening Exercises, Arm raise x 4 Directions 1) Sideways, 0 forwards 2) 30 forward, thumb down 3) 30 forward, thumb up 4) Straight forward, 90 Slowly raise your injured arm each direction. Raise your arm 60 - 80 at the most (shoulder level is90 ) definitely not over the shoulder height. [...] elbow and your body. This will help keepyour arm at your side. Hold one end [...] 12 3 15 3 documented in [facility]* Diagnosis Strain of muscle, fascia and tendon of other parts of biceps, right arm, initial encounter Unspecified sprain of right shoulder joint, initial encounter documented in this encounter [facility]* Diagnosis Traumatic partial tear of right biceps tendon, initial encounter- Primary Sprain of right shoulder, initial encounter documented in this encounter [facility]* Diagnosis Sprain of right shoulder, initial encounter Traumatic partial tear of right biceps tendon, initial encounter documented in this encounter [facility]* Diagnosis Strain of muscle, fascia and tendon of other parts of biceps, right arm, initial encounter- Primary Unspecified sprain of right shoulder joint, initial encounter Strain of muscle, fascia and tendon of other parts of biceps, right arm, initial encounter Unspecified sprain of right shoulder joint, initial encounter documented in this encounter [facility]* Diagnosis Onset Date Resolution Status Wellness examination acute [facility] Work Phone: Reason for referral (narrative)* Consultation (Routine) - Pending Review Specialty Diagnoses / Procedures Referred By Miranda hurst Referred To Contact Physical Therapy Diagnoses Traumatic partial tear of right biceps tendon, initial encounter Sprain of right shoulder, initial encounter Procedures [place] OFFICE/OUTPATIENT [facility] 60-74 MINUTES Donta Morales MD [address] [place] [address] Referral ID Status Reason Start Date Expiration Date Visits Requested Visits Authorized [id number] Pending Review Specialty Services Required 05/23/2023 05/22/2024 99 [phone] [facility]No reason for referral information availableWCincinnati VA Medical Center Work Phone: Summary Purpose Family History No Family History Records Found Relationship Condition Age at Onset Recorded Date/T narcisa Not Specified Multiple sclerosis Unknown Advance Directives No Advanced Directives Records Found Advance Directive Response Recorded Date/ Time Living Will No December 19 4:44pm Power of Clerical And Administrative Workers No December 19, 2022 4:44pm Reason for Referral Specialty Diagnoses / Procedures Referred By Miranda hurst Referred To Contact Radiology Diagnoses Strain of muscle, fascia and tendon of other parts of biceps, right arm, initial encounter Unspecified sprain of right shoulder joint, initial encounter Procedures MR shoulder right wo IV contrast Betty Bobby, [employer]OR [address] [place] [address] Referral ID Status Reason Start Date Expiration Date Visits Re quested Visits Authorized [id number] Closed 05/14/2023 11/10/2023 1 1 Chief Complaint and Reason for Visit Chief Complaint Annual wellness exam /labs PE Reason for Visit Wellness examination Chief Complaint Admit Date Annual wellness exam PE December 08 3:51pm 6 M FU meds March 25, 2025 3:50pm [facility] March 26, 2025 3:05am Reason for Visit Admit Date Wellness examination December 08, 2024 3:51pm Cystitis March 25, 2025 3:50pm Diabetes mellitus type 2, un controlled, without complications March 25, 2025 3:50pm Psoriasis (a type of skin inflammation) March 25, 2025 3:50pm Additional Source Comments INFORMATION SOURCE (unrecogn ized section and content) DATE CREATED AUTHOR 01/13/2019 [facility] DATE CREATED AUTHOR AUTHOR'S ORGANIZ ATION 07/10/2023 [employer] [facility] DATE CREATED AUTHOR AUTHOR'S OR[facility]IZ AT[facility] Reason [facility] Visit (unrecogniz ed section and content) Specialty Diagnoses / Procedures Referred By Contac t Referred To Contact Radiology Diagnoses Strain of muscle, fascia and tendon of other parts of biceps, right arm, initial encounter Unspecified sprain of right shoulder joint, initial encounter Procedures MR shoulder right wo IV contrast Betty Bobby, [employer] [address] [place] [id number] Referral ID Status Reason Start Date Expiration Date Visits Re quested Visits Authorized [id number] Closed 05/14/2023 11/10/2023 1 1 Reason Comments New Patient Right shoulder pain -[facility] Reason Comments Follow-up [facility] Right Shoulder D iagnostic Injection Care Teams (unrecognized sec tion and content) Craft Recruiter Relationship Specialty Start Date End Date Cisco Clarke [address] [place] [address] PCP - General Nurse Practitioner 05/14/23 Craft Recruiter Relationship Specialty Start Date End Date Cisco Clarke [address] [place] [address] PCP - General Nurse Practitioner 05/14/23 Craft Recruiter Relationship Specialty Start Date End Date Cisco Clarke [address] [place] [address] PCP - General Nurse Practitioner 05/14/23 Craft Recruiter Relationship Specialty Start Date End Date Cisco Clarke [address] [place] [address] PCP - General Nurse Practitioner 05/14/23 Craft Recruiter Relationship Specialty Start Date End Date Cisco Clarke [address] [place] [address] PCP - General Nurse Practitioner 05/14/23 Team Status: Active Member Role Status Dates Cisco Clarke WEB PRODUCTION ARTIST, WEB PRODUCTION ARTIST-C Family Provider Active Cisco Clarke WEB PRODUCTION ARTIST, WEB PRODUCTION ARTIST-C Primary Care Provider Active Team Status: Inactive Member Role Status Dates Cisco Clarke WEB PRODUCTION ARTIST, WEB PRODUCTION ARTIST-C Primary Care Pr ovider, Attending Provider, Referring Provider Active Team Status: Inactive Member Role Status Dates Cisco Clarke WEB PRODUCTION ARTIST, WEB PRODUCTION ARTIST-C Primary Care Provider Active Start: December 08, 2024 End: December 08, 2024 Cisco Clarke WEB PRODUCTION ARTIST, WEB PRODUCTION ARTIST-C Attending Provider Active Start: December 08, 2024 End: December 08, 2024 Cisco Clarke WEB PRODUCTION ARTIST, WEB PRODUCTION ARTIST-C Referring Provider Active Start: December 08, 2024 End: December 08, 2024 Team Status: Inactive Member Role Status Dates Cisco Clarke WEB PRODUCTION ARTIST, WEB PRODUCTION ARTIST-C Primary Care Provider Active Start: March 25, 2025 End: March 25, 2025 Cisco Clarke WEB PRODUCTION ARTIST, WEB PRODUCTION ARTIST-C Attending Provider Active Start: March 25, 2025 End: March 25, 2025 Cisco Clarke WEB PRODUCTION ARTIST, WEB PRODUCTION ARTIST-C Referring Provider Active Start: March 25, 2025 End: March 25, 2025 Team Status: Inactive Member Role Status Dates Cisco Clarke WEB PRODUCTION ARTIST, WEB PRODUCTION ARTIST-C Primary Care Provider Active Start: March 26, 2025 End: March 26, 2025 Cisco Clarke WEB PRODUCTION ARTIST, WEB PRODUCTION ARTIST-C Attending Provider Active Start: March 26, 2025 End: March 26, 2025 Cisco lCarke WEB PRODUCTION ARTIST, WEB PRODUCTION ARTIST-C Referring Provider Active Start: March 26, 2025 End: March 26, 2025 Goals (unrecognized section and content) Goals may be documented in a n alternate sectionGoals may be documented in an alternate section FOR RECORDS PERTAINING TO PATIENTS WHO ARE [...] BE BASED ON THE PRIMARY CLINICAL RECORDS. [employer] [facility]. provides no warranty or guarantee of the accuracy or completeness of information in this document.
[2025-06-04 00:57] LABS: Amylase 63 U/L (28-100)
[2025-06-06 14:26] LABS: Lipase 61 U/L (13-75)
== END | disposition home or self-care (01) ==
PROVIDERS: PCP Nurse Practitioner; Referring Provider Nurse Practitioner; Visit Provider Nurse Practitioner
DX: K83.9 Disease of biliary tract, unspecified (principal); E11.65 Type 2 diabetes mellitus with hyperglycemia; K85.90 Acute pancreatitis without necrosis or infection, unspecified
CPT/HCPCS: 82150; 83690